=== PATIENT | female | born 1950 | race Caucasian/White ===

== ENCOUNTER → 2017-12-04 08:50 | Outpatient (CLI) | payer OTHER, SELFPAY ==
--- NOTE | 2017-12-04 08:58 | CDU_ITS ---
Reason For Study: BRUIT Rt. Velocities/BP Lt. Velocities/BP Prox CCA 85/22 cm/sec. Prox CCA 127/35 cm/sec. Mid CCA 87/24 cm/sec. Mid CCA 89/30 cm/sec. Dist CCA 69/22 cm/sec. Dist CCA 85/31 cm/sec. Prox ICA 68/24 cm/sec. Prox ICA 96/31 cm/sec. Mid ICA 75/27 cm/sec. Mid ICA 95/36 cm/sec. Dist ICA 100/34 cm/sec. Dist ICA 113/43 cm/sec. Rt. ICA/CCA = 1.14. Lt. ICA/CCA = 1.27. Prox ECA 90/14 cm/sec. Prox ECA 68/16 cm/sec. Rt. Vert. 50/19 cm/sec. Lt. Vert. 52/17 cm/sec. Right Extracranial There is homogeneous, smooth atherosclerotic plaque noted in the right common carotid artery. There is heterogeneous, irregular atherosclerotic plaque noted in the right internal carotid artery. There is heterogeneous, irregular atherosclerotic plaque noted in the right external carotid artery. Antegrade flow is noted in the right vertebral artery. There is heterogeneous, irregular atherosclerotic plaque noted in the right bulb. Left Extracranial There is homogeneous, smooth atherosclerotic plaque noted in the left common carotid artery. There is heterogeneous, smooth atherosclerotic plaque noted in the left internal carotid artery. There is heterogeneous, irregular atherosclerotic plaque noted in the left external carotid artery. Antegrade flow is noted in the left vertebral artery. There is heterogeneous, irregular atherosclerotic plaque noted in the left bulb. Procedure Carotid Duplex 70321. Exam performed in department. Interpretation Summary Mild (<50%) stenosis right extracranial internal carotid. Mild (<50%) stenosis left extracranial internal carotid. Flow within the vertebral arteries is antegrade bilaterally. Ordering Physician: Miguel Ángel Miranda Referring Physician: MIGUEL ÁNGEL MIRANDA Performed By: SureshLeilani arzola RDCS, RVT
--- NOTE | 2017-12-04 10:05 | RAD_ITS ---
Procedure: Dedicated esophagram, fluoroscopically guided. INDICATIONS: Heart spasms in September of this year. Now questioning esophageal spasm. TECHNIQUE: Fluoroscopic guided air-contrast esophagram with 12 mm barium pill swallow. Dedicated frontal and lateral evaluation of the pharynx/larynx. FINDINGS: The patient easily and readily swallowed effervescent crystals, a 12 mm barium pill and various density barium contrast. Multiple digital spot images were obtained during the course of the real-time exam. Esophageal motility is normal. There is no esophageal stricture, web or diverticulum. There is no hiatal hernia. No free reflux was observed during the course of the real-time exam. The esophageal mucosal pattern appears unremarkable. The swallow 12 mm barium pill easily and rapidly transited through the esophagus into the stomach. Dedicated frontal and lateral cine evaluation of the pharynx larynx demonstrate symmetric flow of the contrast bolus. Mucosal pattern appears unremarkable. There is no intrinsic or extrinsic mass or mass effect. RAD/Esophagus Only IMPRESSION: Unremarkable exam. Fluoroscopy time less than 1 minute. Incidental note of spondylosis and single level grade 1 degenerative listhesis throughout the cervical spine. Electronically Signed: Jaspreet Black MD at 10:55 EDT , Service support ,
== END ==
PROVIDERS: Family Provider Internal Medicine; PCP Internal Medicine; Visit Provider Internal Medicine
DX: R13.10 Dysphagia, unspecified (principal); R09.89 Other specified symptoms and signs involving the circulatory and respiratory systems
CPT/HCPCS: 74220; 93880

== ENCOUNTER → 2018-01-24 10:39 | Outpatient (CLI) | payer OTHER, SELFPAY ==
--- NOTE | 2018-01-24 10:43 | RAD_ITS ---
STUDY: X-RAY - LEFT KNEE REASON FOR EXAM: Female, 67 years old. Pain TECHNIQUE: 4 view(s) of the knee. COMPARISON: None. FINDINGS: Normal visualized distal femur. Normal visualized proximal tibia and fibula. Normal proximal tibiofibular articulation. There is no demonstrated fracture. There is severe degenerative arthrosis of the medial femorotibial compartment with severe joint space narrowing. There is mild degenerative arthrosis of the lateral femorotibial compartment. There is severe degenerative arthrosis of the patellofemoral articulation. There is no demonstrated joint effusion. The soft tissue structures are unremarkable. RAD/Knee 4 or More Views IMPRESSION: No acute abnormality. Severe degenerative changes, especially medially. Electronically Signed: Bert Leos MD at 14:40 EDT , Service support ,
--- NOTE | 2018-01-24 10:43 | RAD_ITS ---
STUDY: X-RAY - RIGHT KNEE REASON FOR EXAM: Female, 67 years old. Pain. TECHNIQUE: 4 view(s) of the knee. COMPARISON: None. FINDINGS: Normal visualized distal femur. Normal visualized proximal tibia and fibula. Normal proximal tibiofibular articulation. There is no demonstrated fracture. There is moderate degenerative arthrosis of the medial femorotibial compartment with moderate joint space narrowing. Normal lateral femorotibial compartment. There is mild degenerative arthrosis of the patellofemoral articulation. There is no demonstrated joint effusion. The soft tissue structures are unremarkable. RAD/Knee 4 or More Views IMPRESSION: No acute abnormality. Mild to moderate multicompartment degenerative changes. Electronically Signed: Bert Leos MD at 14:41 EDT , Service support ,
== END ==
PROVIDERS: Family Provider Internal Medicine; PCP Internal Medicine; Visit Provider Internal Medicine
DX: M17.0 Bilateral primary osteoarthritis of knee (principal)
CPT/HCPCS: 73564

== ENCOUNTER → 2018-03-05 11:03 | Outpatient (CLI) | payer OTHER, SELFPAY ==
--- NOTE | 2018-03-05 11:05 | VDLE_ITS ---
Reason For Study: Swelling RLE RIGHT LEFT GSV is normal. CFV is compressible, spontaneous, phasic, CFV is compressible, spontaneous, phasic, competent, and demonstrates normal competent and demonstrates normal augmentation. augmentation. FV is compressible, spontaneous, phasic, competent and demonstrates normal augmentation. POP V is compressible, spontaneous, phasic, competent and demonstrates normal augmentation. T/P Trunk is compressible. PTV is compressible. RT PerV is compressible. Hypoechoic, non vascular structure noted Rt Pop Fossa measuring 2.18cm x 4.21cm. Procedure Exam performed in department. A preliminary report was called and/or faxed to Dr. Schmidt. Interpretation Summary Deep veins of the right lower extremity are patent and compressible segmentally. There is no evidence of right lower extremity deep vein thrombosis. Valvular competence appears intact within the proximal deep venous system on the right . The right greater saphenous vein appears patent and compressible segmentally. A non-vascular, hypoechoic structure is noted in the right popliteal space, measuring 2.18 cm x 4.21 cm. This probably represents a popliteal cyst. Clinical correlation is advised. Ordering Physician: Becky Schmidt Referring Physician: Becky Schmidt Performed By: Lety Webber, [facility]I, RVT
== END ==
PROVIDERS: Family Provider Internal Medicine; PCP Internal Medicine; Visit Provider Internal Medicine
DX: M79.89 Other specified soft tissue disorders (principal)
CPT/HCPCS: 93971

== ENCOUNTER → 2018-04-23 09:36 | Outpatient (CLI) | payer OTHER, SELFPAY ==
--- NOTE | 2018-04-23 09:43 | BI_ITS ---
MAMMOGRAPHY - BILATERAL SCREENING REASON FOR EXAM: Female, 67 years old. Routine annual screening examination. PERTINENT HISTORY: Non-contributory. TECHNIQUE: Digital bilateral breast wilber (3D mammographic acquisition) in the CC and MLO projections. 2-D mediolateral oblique (MLO) and craniocaudad (CC) views of both breasts were obtained. CAD: Full Field Digital Mammography with Computer Added Detection was performed. COMPARISON: Comparison is made with prior outside examination dated April 02, 2017. FINDINGS: Breast Composition: The breasts are heterogeneously dense, which may obscure small masses. There are no dominant masses or suspicious calcifications. No other significant abnormalities are identified. There has been no significant change since the prior study. BI/SCREENING MAMM (CAD), BILAT IMPRESSION: Stable bilateral screening mammogram. Yearly follow-up mammogram recommended. (A) ASSESSMENT CATEGORY: BIRADS Category 1: Negative. A letter regarding these results will be sent to the patient by the facility within 30 days. Approximately 10% of breast cancers are not detected by mammography. A normal mammogram should not delay biopsy of a clinically suspicious abnormality. [id number] Electronically Signed: Ace Cunha MD at 13:12 EDT Tel [phone], Service support ,
== END ==
PROVIDERS: Family Provider Internal Medicine; PCP Internal Medicine; Visit Provider Internal Medicine
DX: Z12.31 Encounter for screening mammogram for malignant neoplasm of breast (principal)
CPT/HCPCS: 77063; 77067

== ENCOUNTER → 2018-11-13 11:58 | Outpatient (CLI) | payer OTHER, SELFPAY ==
--- NOTE | 2018-11-13 12:03 | CDU_ITS ---
Reason For Study: Carotid stenosis Rt. Velocities/BP Lt. Velocities/BP Prox CCA 89.1/20.0 cm/sec. Prox CCA 102.1/25.2 cm/sec. Mid CCA 108.6/21.3 cm/sec. Mid CCA 96.9/23.9 cm/sec. Dist CCA 100.8/23.9 cm/sec. Dist CCA 79.9/23.9 cm/sec. Prox ICA 70.8/17.3 cm/sec. Prox ICA 79.9/26.5 cm/sec. Mid ICA 65.6/14.7 cm/sec. Mid ICA 64.7/21.4 cm/sec. Dist ICA 65.6/14.7 cm/sec. Dist ICA 58.0/19.2 cm/sec. Rt. ICA/CCA = .7. Lt. ICA/CCA = .8. Prox ECA 116.5/10.8 cm/sec. Prox ECA 73.4/9.5 cm/sec. Rt. Vert. 53.9/17.3 cm/sec. Lt. Vert. 43.4/12.1 cm/sec. Right Extracranial There is intimal thickening but no significant atherosclerotic plaque noted in the right common carotid artery. There is heterogeneous, irregular atherosclerotic plaque noted in the right internal carotid artery. There is heterogeneous, irregular atherosclerotic plaque noted in the right external carotid artery. Antegrade flow is noted in the right vertebral artery. Left Extracranial There is intimal thickening but no significant atherosclerotic plaque noted in the left common carotid artery. There is heterogeneous, irregular atherosclerotic plaque noted in the left internal carotid artery. There is heterogeneous, irregular atherosclerotic plaque noted in the left external carotid artery. Antegrade flow is noted in the left vertebral artery. Procedure Carotid Duplex [id number]. Exam performed in department. Interpretation Summary Mild (<50%) stenosis right extracranial internal carotid. Mild (<50%) stenosis left extracranial internal carotid. Flow within the vertebral arteries is antegrade bilaterally. Ordering Physician: Becky Schmidt Referring Physician: Becky Schmidt Performed By: Lavonne Emery RVT
--- NOTE | 2018-11-13 12:42 | BD_ITS ---
STUDY: DUAL ENERGY X-RAY ABSORPTIOMETRY / DXA REASON FOR EXAM: Female, 68 years old. Early menopause. TECHNIQUE: Bone Mineral Density (BMD) measurements of lumbar spine and bilateral hips were obtained. COMPARISON: None. FINDINGS: Lumbar Spine (L1-L4): g/cm2 (1.128) / T-score (-0.4) / Z-score (1.3) Findings are suggestive of normal bone density with a low fracture risk. Left Femur Total: g/cm2 (0.682) / T-score (-2.6) / Z-score (-1.3) Left Femoral Neck: g/cm2 (0.690) / T-score (-2.5) / Z-score (-1.0) Right Femur Total: g/cm2 (0.803) / T-score (-1.6) / Z-score (-0.4) Right Femoral Neck: g/cm2 (0.747) / T-score (-2.1) / Z-score (-0.6) BD/Dexa Bone Density Study IMPRESSION: The patient is considered osteoporotic as outlined below according to World Isidro Organization (WHO) criteria with a high fracture risk. Reference Information: The T-score is the number of standard deviations above or below the standard which is normal for young adults at their peak bone mineral density. The World Health Organization (WHO) interprets the T-scores as follows: Above -1 Normal bone density Between -1 and -2.5 Osteopenia Equal to / or below -2.5 Osteoporosis As a practical clinical guideline, osteopenia may be graded as follows: Mild -1 through -1.5 Moderate -1.6 through -2.0 Severe -2.1 through -2.4 The Z-score is the number of standard deviations above or below age-matched controls. A Z-score of less than -1.5 would be considered abnormal. References: 1. NIH Osteoporosis and Related Bone Diseases http://www.osteo.org 2. International Society for Clinical Densitometry http://www.iscd.org 3. National Osteoporosis Foundation http://www.nof.org Electronically Signed: Ace Cunha, at 14:39 EDT , Service support ,
== END ==
PROVIDERS: Family Provider Internal Medicine; PCP Internal Medicine; Referring Provider Internal Medicine; Visit Provider Internal Medicine
DX: I65.23 Occlusion and stenosis of bilateral carotid arteries (principal); Z78.0 Asymptomatic menopausal state
CPT/HCPCS: 77080; 93880

== ENCOUNTER → 2019-04-06 | Outpatient (CLI) | payer OTHER, SELFPAY ==
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
== END | disposition home or self-care (01) ==
PROVIDERS: Family Provider Internal Medicine; PCP Internal Medicine; Referring Provider Internal Medicine; Visit Provider Internal Medicine
DX: M25.561 Pain in right knee (principal)
CPT/HCPCS: 73564

== ENCOUNTER → 2019-05-05 10:02 | Outpatient (CLI) | payer OTHER, SELFPAY ==
--- NOTE | 2019-05-05 10:06 | BI_ITS ---
MAMMOGRAPHY - BILATERAL SCREENING REASON FOR EXAM: Female, 68 years old. Routine annual screening examination. PERTINENT HISTORY: Non-contributory. TECHNIQUE: Digital bilateral breast dedeee (3D mammographic acquisition) in the CC and MLO projections. 2-D mediolateral oblique (MLO) and craniocaudad (CC) views of both breasts were obtained. CAD: Full Field Digital Mammography with Computer Added Detection was performed. COMPARISON: Comparison is made with prior study dated April 23, 2018. FINDINGS: Breast Composition: The breasts are heterogeneously dense, which may obscure small masses. There are no dominant masses or suspicious calcifications. No other significant abnormalities are identified. There has been no significant change since the prior study. BI/SCREEN MAMM (CAD) W/DEEDEE BILAT IMPRESSION: Stable bilateral screening mammogram. Yearly follow-up mammogram recommended. (A) ASSESSMENT CATEGORY: BIRADS Category 1: Negative. A letter regarding these results will be sent to the patient by the facility within 30 days. Approximately 10% of breast cancers are not detected by mammography. A normal mammogram should not delay biopsy of a clinically suspicious abnormality. [id number] Electronically Signed: Ace Cunha, at 13:15 EDT , Service support ,
== END ==
PROVIDERS: Family Provider Internal Medicine; PCP Internal Medicine; Referring Provider Internal Medicine; Visit Provider Internal Medicine
DX: Z12.31 Encounter for screening mammogram for malignant neoplasm of breast (principal)
CPT/HCPCS: 77063; 77067

== ENCOUNTER → 2019-05-12 12:12 | Outpatient (CLI) | payer OTHER, SELFPAY ==
--- NOTE | 2019-05-12 12:15 | RAD_ITS ---
STUDY: X-RAY - BILATERAL RIBS WITH CHEST REASON FOR EXAM: Female, 68 years old. Anterior displaced ribs from coughing, continued pressure sensation after adjustment. TECHNIQUE - RIBS: 4 view(s) of the ribs. TECHNIQUE - CHEST: Single frontal view of the chest. COMPARISON: None. FINDINGS - RIBS : Normal visualized ribs without a demonstrated fracture. FINDINGS - CHEST: The lungs are clear and expanded. There is no demonstrated pleural abnormality. Normal size heart. Normal mediastinum and trinity. Normal visualized pulmonary arteries. Normal visualized aortic arch and descending thoracic aorta. There are degenerative changes of the lower thoracic spine. Normal visualized ribs, clavicles, and shoulders. Surgical clips consistent with prior cholecystectomy project in the right upper quadrant of the abdomen. RAD/Ribs Case Min 4V w/PA Chest IMPRESSION: RIBS: Normal x-ray examination of the bilateral ribs. CHEST: No acute cardiopulmonary disease. Electronically Signed: Macario Ennis MD at 19:19 EDT , Service support ,
== END ==
PROVIDERS: Family Provider Internal Medicine; PCP Internal Medicine; Referring Provider Internal Medicine; Visit Provider Internal Medicine
DX: R07.81 Pleurodynia (principal)
CPT/HCPCS: 71111

== ENCOUNTER → 2019-05-20 12:14 | Outpatient (CLI) | payer OTHER, SELFPAY ==
[2019-05-20 12:17] LABS: Bacteria 0 SEEN /hpf (None Seen); Mucous, Urine 0 SEEN /hpf (<or=2+); Red Blood Cells-Urine 0 SEEN /hpf (0-5); White Blood Cells 0 SEEN /hpf (0-5)
[2019-05-20 12:24] LABS: Absolute Lymphocyte Count 1.49 X10^3/uL (0.83-4.51); Absolute Neutrophil Count 5.8 X10^3/uL (2.0-7.7); Basophil# 0.04 X10^3/uL; Basophil% 0.5 % (0-1); Eosinophil# 0.29 X10^3/uL; Eosinophils% 3.5 % (0-5); Hematocrit 43.1 % (37-47); Hemoglobin 13.8 g/dL (12.0-15.0); Lymphocyte # 1.49 X10^3/ul (4.0); Mean Corpuscular Hgb 30.1 pg (27.0-32.0); Mean Corpuscular Volume 93.9 fL (81-99); Mean Platelet Vol. 11.3 fl (6.2-12.0); Monocyte# 0.63 X10^3/uL; Monocyte% 7.6 % (0-10); NRBC Flagged by Analyzer 0 % (0-5); Neutrophil # 5.82 X10^3/uL (2.7-7.7); Neutrophil % 70.2 % (47-70); Platelet Count 255 K/mm3 (150-450); RBC Distribution Width CV 13.6 % (11.6-14.6); RBC Distribution Width SD 46.5 fl (35.1-43.9); Red Blood Count 4.59 M/mm3 (4.2-5.4); White Blood Count 8.3 K/mm3 (4.4-11.0)
[2019-05-20 12:26] LABS: Color, Urine Yellow (Yellow); Glucose, Dipstick Normal (Normal); Ketone-Dipstick Negative (Negative); Leukocyte Esterase-Dipstick Negative /ul (Negative); Nitrite-Dipstick Negative (Negative); Occult Blood-Urine Negative /ul (Negative); Protein-Dipstick Negative (Negative); Urine Bilirubin Dipstick Negative (Negative); Urine Clarity Sl. Cloudy (Clear); Urine Urobilinogen Normal (Normal)
[2019-05-20 12:27] LABS: Erythrocyte Sedimentation Rate < 1 mm/hr (0-30)
[2019-05-20 12:34] LABS: D-Dimer Quantitative (DVT/PE) 0.49 FEU/ug/m (0.27-0.49)
[2019-05-20 12:35] LABS: Squamous Epithelial Cells - UA 0-5 SEEN /hpf (5-10)
[2019-05-20 12:56] LABS: Vitamin B12 616 pg/mL (211-911)
[2019-05-20 12:58] LABS: ALB/GLOB Ratio 1.7 RATIO (0.9-2.4); AST(SGOT) 28 U/L (15-37); Alanine Aminotransfer ALT/SGPT 32 U/L (13-56); Albumin, Serum 3.7 g/dL (3.2-5.0); Alkaline Phosphatase 60 U/L (45-117); Anion Gap 9 (5-15); BUN 14 mg/dL (7-18); BUN/Creat Ratio 20.3 RATIO (10-20); CRP < 2.90 mg/L (0.0-3.0); Calcium,Total 8.9 mg/dL (8.5-10.1); Chloride 108 mmol/L (98-107); Creatinine, Serum 0.69 mg/dL (0.55-1.02); EST Glomerular Filtration Rate 90 mL/min (>60); Est Glom Filt Rate - Afr Amer 109 mL/min (>60); Globulin 2.2 g/dL (2.2-4.2); Glucose 81 mg/dL (74-106); Potassium 4.2 mmol/L (3.5-5.1); Protein, Total 5.9 g/dL (6.4-8.2); Sodium Level 148 mmol/L (136-145); Thyroid Stim Hormone (TSH) 0.95 uIU/mL (0.358-3.74)
== END ==
PROVIDERS: Family Provider Internal Medicine; PCP Internal Medicine; Visit Provider Internal Medicine
DX: R07.89 Other chest pain (principal); R53.83 Other fatigue
CPT/HCPCS: 80053; 81001; 82607; 84443; 85025; 85379; 85652; 86140

== ENCOUNTER → 2019-07-01 11:48 | Outpatient (CLI) | payer OTHER, SELFPAY ==
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
== END ==
PROVIDERS: Family Provider Internal Medicine; PCP Internal Medicine; Referring Provider Internal Medicine; Visit Provider Internal Medicine
DX: M54.2 Cervicalgia (principal)
CPT/HCPCS: 72050

== ENCOUNTER 2019-07-02 12:32 | Emergency (ER) | payer OTHER, SELFPAY ==
[2019-07-02 12:33] VITALS: BP 150/85; PULSE 81; RESP 18; TEMP 36.6; O2SAT 98; BMI 24.0
--- NOTE | 2019-07-02 13:42 | MRI_ITS ---
STUDY: MRA OF THE HEAD WITHOUT CONTRAST REASON FOR EXAM: Female, 68 years old. Headache, vision loss TECHNIQUE: 3-D [id number] (TOF) imaging was performed with MIPs. The study was performed unenhanced. COMPARISON: None. FINDINGS: Normal bilateral petrous carotid arteries. Normal right cavernous carotid artery with a normal supraclinoid bifurcation. Normal left cavernous carotid artery with a normal supraclinoid bifurcation. There is hypoplastic development of the right A1 segment of the anterior cerebral arteries with an atretic but intact artery. Normal left A1 segments of the anterior cerebral artery. Normal intact anterior communicating artery (ACOM). Normal bilateral A2 segments of the anterior cerebral arteries. Normal right M1 and M2 segments of the middle cerebral arteries, with a normal M1 bifurcation. Normal left M1 and M2 segments of the middle cerebral arteries, with a normal M1 bifurcation. Normal right posterior communicating artery (PCOM). Normal left posterior communicating artery (PCOM). Normal bilateral vertebral arteries. Normal basilar artery with a normal basilar bifurcation. The visualized bilateral superior cerebellar (SCA) arteries are normal. Normal bilateral P1, P2 and visualized P3 segments of the posterior cerebral arteries. There is no demonstrated aneurysm of the unga of Read. There is no major vessel occlusion or hemodynamically significant stenosis. There is no demonstrated abnormality of the visualized brain. MRI/MRA Head ONLY without Contrast IMPRESSION: Normal MRA of the head Electronically Signed: Sahil Marshall MD at 16:06 EST Tel , Service support ,
--- NOTE | 2019-07-02 13:42 | MRI_ITS ---
We are attempting to reach an attending provider to discuss findings. An addendum with communication details will be sent when the communication is complete. STUDY: MRI BRAIN WITH AND WITHOUT CONTRAST REASON FOR EXAM: Female, 68 years old. Headache, vision loss, altered mental status, confusion TECHNIQUE: Standardized multiplanar fat and water weighted pulse sequences were obtained. IV Dotarem 13 was administered for the contrast portion of the examination. COMPARISON: None. FINDINGS: There is mild cerebral atrophy with widening of the extra-axial spaces and ventricular dilatation. There are a limited number of small white matter hyperintensities, distributed throughout the deep white matter tracts of the cerebral hemispheres, consistent with mild chronic white matter ischemic changes. There is no evidence for recent intracranial ischemia or other cause of cytotoxic edema on diffusion weighted imaging (DWI). Examination of the gradient echo images demonstrates some linear areas of hypointensity along the superior aspect of the falx cerebri which may represent calcification or subarachnoid hemorrhage. Furthermore, there is a punctate round hypointensity within the periventricular white matter of the posterior right parietal lobe which may represent hemorrhage possibly from amyloid angiopathy. Correlation with CT the head without contrast is recommended. Normal bilateral basal ganglia. Normal thalami. There is no extra-axial fluid accumulation. Normal flow voids within the major intracranial circulation suggesting patency by spin echo criteria. Normal venous enhancement. There is no enhancing intra-axial or extra-axial abnormality. Normal sella turcica, pituitary gland, infundibular stalk, optic chiasm and hypothalamus. Normal tectal plate and pineal gland. Normal midbrain, andrew and medulla. Normal cerebellum. Normal basal cisterns. Normal bilateral temporal bones. Normal bilateral internal auditory canals. No demonstrated orbital abnormality, within the constraints of a routine brain study. Normal visualized paranasal sinuses. Normal calvarium and skull base. Normal visualized soft tissue structures. Normal visualized upper cervical spine. MRI/Brain W/WO Contrast IMPRESSION: Crushable subarachnoid hemorrhage along the superior aspect of the falx as well as a possible punctate parenchymal hemorrhage in the periventricular right matter of the right parietal lobe. Correlation with CT the head without contrast is recommended. Electronically Signed: Sahil Marshall MD at 16:03 EST Tel , Service support ,
--- NOTE | 2019-07-02 13:42 | MRI_ITS ---
STUDY: MRA NECK WITH AND WITHOUT CONTRAST REASON FOR EXAM: Female, 68 years old. Headache, vision loss TECHNIQUE: 3-D [id number] (TOF) imaging was performed in an 1.5 T MRI scanner. IV Dotarem 13 was administered for the contrast enhanced images. COMPARISON: None. FINDINGS: RIGHT CAROTID ARTERIES: Normal right common carotid artery (CCA). Normal right common carotid bulb. Normal origin of the right internal carotid (ICA) artery without a hemodynamically significant stenosis. Normal visualized cervical portion of the right internal carotid artery. Normal origin of the right external carotid artery (ECA). LEFT CAROTID ARTERIES: Normal left common carotid artery (CCA). Normal left common carotid bulb. Normal origin of the left internal carotid (ICA) artery without a hemodynamically significant stenosis. Normal visualized cervical portion of the left internal carotid artery. Normal origin of the left external carotid artery (ECA). VERTEBRAL ARTERIES: Normal antegrade flow within the bilateral vertebral artery without a hemodynamically significant stenosis. MRI/MRA Neck WITH and W/O Contrast IMPRESSION: Normal bilateral cervical carotid and vertebral arteries. Electronically Signed: Sahil Marshall MD at 16:06 EST Tel , Service support ,
[2019-07-02 13:48] LABS: Hematocrit 41.5 % (37-47); Hemoglobin 13.2 g/dL (12.0-15.0); Mean Corp Hgb Conc 31.8 g/dL (32-36); Mean Corpuscular Hgb 29.1 pg (27.0-32.0); Mean Corpuscular Volume 91.6 fL (81-99); Mean Platelet Vol. 11.4 fl (6.2-12.0); Platelet Count 249 K/mm3 (150-450); RBC Distribution Width CV 13.4 % (11.6-14.6); RBC Distribution Width SD 44.9 fl (35.1-43.9); Red Blood Count 4.53 M/mm3 (4.2-5.4); White Blood Count 6.8 K/mm3 (4.4-11.0)
[2019-07-02 13:55] LABS: Anion Gap 5 (5-15); BUN 15 mg/dL (7-18); BUN/Creat Ratio 21.7 RATIO (10-20); Calcium,Total 9.1 mg/dL (8.5-10.1); Chloride 110 mmol/L (98-107); Creatinine, Serum 0.69 mg/dL (0.55-1.02); EST Glomerular Filtration Rate 90 mL/min (>60); Est Glom Filt Rate - Afr Amer 109 mL/min (>60); Estimated Creatinine Clearance 51.81 ml/min; Glucose 105 mg/dL (74-106); Potassium 3.8 mmol/L (3.5-5.1); Sodium Level 145 mmol/L (136-145)
[2019-07-02] MEDS: 0.9% Normal Saline 1,000 ML 999 ML IV (14:12)
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
--- NOTE | 2019-07-02 16:18 | CT_ITS ---
STUDY: CT BRAIN WITHOUT CONTRAST REASON FOR EXAM: Female, 68 years old. Headache, neck stiffness. RADIATION DOSAGE (If Supplied By Facility): CTDIvol = ( 44.99 ) mGy, DLP = ( 745.49 ) mGycm TECHNIQUE: Transaxial CT imaging of the brain was performed without administration of intravenous contrast material. Individualized dose optimization techniques were used for this CT. COMPARISON: MRI brain 07/02/2019. FINDINGS: Normal soft tissue structures. Normal calvarium. Normal size ventricles and extra-axial spaces for the patient's age. There are areas of decreased attenuation within the white matter tracts of the supratentorial brain, consistent with microvascular disease changes. There is no intracranial hemorrhage. There are no findings of an acute ischemic infarction. Normal visualized paranasal sinuses. CT/Brain/Head without Contrast IMPRESSION: 1. No acute findings. 2. Mild microvascular ischemic changes. Electronically Signed: Theodora Sethi MD at 17:36 EST Tel , Service support ,
--- NOTE | 2019-07-02 16:41 | ED.DEP ---
ED Disposition - Plan for ED Patient: Disposition: Home or Assisted Living Instructions: HEADACHE, Unspecified Referrals: Brayan,Becky, [Primary Care Provider] - As Needed Additional Instructions: Up with your eye doctor to have an evaluation for your double vision.
--- NOTE | 2019-07-02 17:46 | ED.RN ---
pt still has headache. states no improvement. dr duncan
[2019-07-02 18:06] VITALS: BP 160/82; PULSE 67; RESP 14
== END 2019-07-02 18:07 | disposition home or self-care (01) ==
PROVIDERS: Emergency Provider Emergency Medicine; Family Provider Internal Medicine; PCP Internal Medicine
DX: R51 Headache (principal); H53.2 Diplopia; Z87.820 Personal history of traumatic brain injury; I10 Essential (primary) hypertension; E78.00 Pure hypercholesterolemia, unspecified; Z79.899 Other long term (current) drug therapy
CPT/HCPCS: 70450; 70544; 70549; 70553; 80048; 85027; 96360; 96361; 99284; A9575; J7030; A4216

== ENCOUNTER 2019-08-17 10:30 | Outpatient (RCR) | payer OTHER, SELFPAY ==
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
--- NOTE | 2019-08-24 10:11 | HP.PT.NRP ---
HP - Discharge Summary (1) - Patient Information TOBIAS MCNALLY was seen in my office for initial evaluation on 08/14/19. The following Plan of Care was established for this patient: Initial Frequency: 1-2x /Week Initial Duration: 4-6 Weeks - Anticipated Interventions Patient/Client Instruction: Educate patient on: Condition For the Purpose of:: To increase tolerance to activity/condition/position For the Purpose of:: To increase tolerance to activity/condition/position This patient was last seen in our office 08/17/19. Pertinent comments regarding their Physical therapy will appear below: Pt seen two visits of positional treatments adn was to f/u a week later but cancelled stating that the BD exercises given to her were very helpful and she was going to see ENT for plugged ears. Wanted all visits cancelled. At this point I will be discontinuing this patient from physical therapy. I would be happy to see this patient again in the future if found appropriate by the physician. Thank you! Vernon Lui, DPT, OCS, CSCS
== END 2019-08-17 19:00 | disposition home or self-care (01) ==
LOC: PT 10:30
PROVIDERS: Family Provider Internal Medicine; PCP Internal Medicine; Referring Provider Psychiatry & Neurology Neurology; Visit Provider Psychiatry & Neurology Neurology
DX: H81.12 Benign paroxysmal vertigo, left ear (principal)
CPT/HCPCS: 97162; 97530

== ENCOUNTER → 2019-09-17 13:01 | Outpatient (CLI) | payer OTHER, SELFPAY ==
--- NOTE | 2019-09-17 14:43 | CT_ITS ---
STUDY: CT LEFT LEG REASON FOR EXAM: Female, 69 years old. PAIN, KNEE RECONSTRUCTIVE SURGE 1976, KNEE SCOPE IN 2009. RADIATION DOSAGE (If Supplied By Facility): CTDIvol = ( 31.24 ) mGy, DLP = ( 1804.85 ) mGycm. Individualized dose optimization techniques were used for this CT.? TECHNIQUE: 2.5 mm helical cuts were performed through the left lower extremity, first evaluating the left pelvis and proximal left femur second part of the study and involve the distal femur, proximal tibia and fibula and knee joint. There was also evaluation of the distal leg including the ankle. CHRISTINA protocol. COMPARISON: No recent studies FINDINGS: Osteopenia. Mild left hip osteoarthritis without dislocation or subluxation. Intact distal femur with mild cortical thinning. Severe medial compartment arthrosis, mild lateral compartment arthrosis with degenerative spurs. Moderate/severe patellofemoral arthrosis with spurring. No acute fracture. No dislocation. No osseous destruction. No demonstrated soft tissue abnormality in the pelvic and hip region . No soft tissue swelling suspicious adenopathy. Moderate posterior patellar joint effusion with subtle induration of the subcutaneous fat and skin thickening suggesting inflammation. Ankle joint effusion with diffuse induration of the subcutaneous fat suggesting inflammation. Skin thickening. CT/Extremity Lower without Contra IMPRESSION: Severe left knee osteoarthritis predominating at the medial and patellofemoral compartments Mild left hip and ankle osteoporosis Joint effusions and soft tissue swelling Electronically Signed: Vernon Stanton DO at 8:22 EST Tel , Service support ,
== END ==
PROVIDERS: Family Provider Internal Medicine; PCP Internal Medicine; Referring Provider Orthopaedic Surgery; Visit Provider Orthopaedic Surgery
DX: M17.12 Unilateral primary osteoarthritis, left knee (principal); M21.162 Varus deformity, not elsewhere classified, left knee
CPT/HCPCS: 73700

== ENCOUNTER 2019-10-05 10:30 | Observation (INO) | payer OTHER, MEDICARE, SELFPAY ==
[2019-09-17 13:26] VITALS: BP 139/76; PULSE 78; RESP 16; TEMP 37.1; O2SAT 95; BMI 23.3
--- NOTE | 2019-09-17 14:28 | SDCEKG_ITS ---
Test Reason : Blood Pressure : / mmHG Vent. Rate : 075 BPM Atrial Rate : 075 BPM P-R Int : 184 ms QRS Dur : 070 ms QT Int : 400 ms P-R-T Axes : 071 042 060 degrees QTc Int : 446 ms Normal sinus rhythm Possible Left atrial enlargement Borderline ECG Confirmed by CORY JUÁREZ, LAURA ([id number]), market editor TEE CANELA ([id number]) on 09/21/2019 10:49:18 AM Referred By: Sung Stinson Confirmed By:RODRIGUEZ RAY MD
[2019-09-17 14:54] LABS: Absolute Lymphocyte Count 1.74 X10^3/uL (0.83-4.51); Absolute Neutrophil Count 4.1 X10^3/uL (2.0-7.7); Basophil# 0.06 X10^3/uL; Basophil% 0.9 % (0-1); Eosinophil# 0.14 X10^3/uL; Eosinophils% 2.1 % (0-5); Hematocrit 43.8 % (37-47); Hemoglobin 13.8 g/dL (12.0-15.0); Lymphocyte # 1.74 X10^3/ul (4.0); Lymphocyte % 25.7 % (19-41); Mean Corp Hgb Conc 31.5 g/dL (32-36); Mean Corpuscular Hgb 28.8 pg (27.0-32.0); Mean Corpuscular Volume 91.3 fL (81-99); Mean Platelet Vol. 11.9 fl (6.2-12.0); Monocyte# 0.75 X10^3/uL; Monocyte% 11.1 % (0-10); NRBC Flagged by Analyzer 0 % (0-5); Neutrophil # 4.07 X10^3/uL (2.7-7.7); Neutrophil % 59.9 % (47-70); Platelet Count 197 K/mm3 (150-450); RBC Distribution Width CV 13.7 % (11.6-14.6); RBC Distribution Width SD 46.3 fl (35.1-43.9); White Blood Count 6.8 K/mm3 (4.4-11.0)
[2019-09-17 15:04] LABS: Partial Thromboplast Time 28.2 Seconds (24.1-36.2)
[2019-09-17 15:24] LABS: AST(SGOT) 31 U/L (15-37); Alanine Aminotransfer ALT/SGPT 41 U/L (13-56); Albumin, Serum 3.6 g/dL (3.2-5.0); Alkaline Phosphatase 62 U/L (45-117); Anion Gap 1 (5-15); BUN 16 mg/dL (7-18); BUN/Creat Ratio 20.1 RATIO (10-20); Bilirubin, Direct 0.12 mg/dL (0.00-0.30); Calcium,Total 9.1 mg/dL (8.5-10.1); Chloride 112 mmol/L (98-107); EST Glomerular Filtration Rate 77 mL/min (>60); Est Glom Filt Rate - Afr Amer 93 mL/min (>60); Estimated Creatinine Clearance 63.88 ml/min; Globulin 2.8 g/dL (2.2-4.2); Glucose 100 mg/dL (74-106); Potassium 4.4 mmol/L (3.5-5.1); Protein, Total 6.4 g/dL (6.4-8.2); Sodium Level 144 mmol/L (136-145)
[2019-10-05] VITALS (13 sets, daily range): BP systolic 127–180; BP diastolic 62–84; PULSE 65–77; RESP 14–18; TEMP 36.6–36.8; O2SAT 96–100; BMI 23.3
[2019-10-05] MEDS: Lactated Ringers 1,000 ML 75 ML IV ×2 (11:00→14:00)
[2019-10-05] MEDS: Acetaminophen 500 MG Tablet 1000 MG PO ×3 (11:04→20:56)
[2019-10-05] MEDS: Gabapentin 600 MG Tablet PO (11:05)
[2019-10-05] MEDS: Lactated Ringers 1,000 ML 999 ML IV (11:13)
[2019-10-05 11:19] LABS: Magnesium 2.2 mg/dL (1.6-2.6)
[2019-10-05] MEDS: Magnesium Sulfate 4gm/100mL 4 GM/100 ML IV.SOLN. IV (12:15)
--- NOTE | 2019-10-05 12:15 | KNEE_PTH ---
PATIENT: TOBIAS MCNALLY LOC: [facility] U#:[id number] AGE/SX: 69/F [place] [facility] [place]: Dr. Sung Stinson DO : 1950 BED: 1 DIS: 10/06/2019 SPEC #: [id number] RECD: 10/05/19 15:32 STATUS: SASHA REQ #: [id number] KLAUDIA: 10/05/19 12:[address]: Sung Stinson DEPT: SURGICAL PATHOLOGY RECD BY: Richard Osborn ENTERED: 10/06/19 09:24 SP TYPE: TOTAL KNEE OTHR DR: Dr. Becky Schmidt DO Tissues: Knee, NOS Procedures: Decalcification bone/plaque Surgery Specimen Level IV HEADER OPERATION: ERAS, total knee replacement, robotic arm assist PRE-OP DIAGNOSIS: Unilateral primary osteoarthritis left knee TISSUE SUBMITTED: Left knee bone MICROSCOPIC DIAGNOSIS Bone of left knee, total knee resection: Severe degenerative joint disease. AM:florence 10/09/19 MICROSCOPIC DESCRIPTION Slides are reviewed. GROSS DESCRIPTION Received is one container designated left knee bone. The specimen consists of multiple fragments of ruano-yellow bone measuring in aggregate 11 x 9 x 3 cm. No soft tissue is identified. A number of bony fragments contain articular surfaces consistent with tibial plateau and femoral condyle and displaying prominent osteophyte formation, eburnation, and bone erosion. Fur Nailer sections are submitted in one cassette after decalcification. / SJ:florence 10/06/19 TC:5 CPT: 37969, 60397
--- NOTE | 2019-10-05 14:04 | PCM.OPRPT ---
Report of Operation Date of Procedure: 10/05/19 Pre-Operative Diagnosis: OA left knee Post-Operative Diagnosis: same Surgery/Procedure Performed:: Left TKR -- robotically assisted customer strategy manager: Kev Perdomo Type of Anesthesia:: Spinal Anesthesiologist: Gadiel Davis Estimated Blood Loss (mL): minimal - Admit VTE Documentation VTE Present on Admission: No VTE Mechan Device Prophylaxis: SCD's, Thigh High NAIF Hose VTE Pharm Prophylaxis ordered?: Yes
--- NOTE | 2019-10-05 14:30 | RAD_ITS ---
STUDY: X-RAY - LEFT KNEE REASON FOR EXAM: Postop knee arthroplasty. TECHNIQUE: 2 view(s) of the knee. COMPARISON: Radiographs 01/24/[address] images 09/17/2019. FINDINGS: There is a left total knee arthroplasty without evidence of complication. There is postoperative gas in the soft tissues. There are overlying skin erich. RAD/Knee 1 or 2 Views IMPRESSION: Uncomplicated left total knee arthroplasty. Electronically Signed: Salomon Saucedo MD at 15:15 EST Tel , Service support ,
[2019-10-05] MEDS: Aspirin 81 MG TAB.CHEW PO (18:16)
--- NOTE | 2019-10-05 19:33 | CT_ITS ---
STUDY: CT BRAIN WITHOUT CONTRAST REASON FOR EXAM: Female, 69 years old. TREMORS/STUTTERING SPEECH/EMOTIONALLY LABILE SINCE KNEE SURGERY RADIATION DOSAGE (If Supplied By Facility): CTDIvol = ( 44.99 ) mGy, DLP = ( 745.49 ) mGycm TECHNIQUE: Transaxial CT imaging of the brain was performed without administration of intravenous contrast material. Individualized dose optimization techniques were used for this CT. COMPARISON: July 02, 2019 CT head FINDINGS: Normal soft tissue structures. Normal calvarium. There is mild cerebral atrophy with widening of the extra-axial spaces and ventricular dilatation. There are areas of decreased attenuation within the white matter tracts of the supratentorial brain, consistent with microvascular disease changes. There is a punctate focus of low attenuation near the caudate suggesting lacunar infarct. Normal brainstem. There is mild cerebellar atrophy. There is no intracranial hemorrhage. There are no findings of an acute ischemic infarction. Normal visualized paranasal sinuses. CT/Brain/Head without Contrast IMPRESSION: Mild atrophy. No evidence of acute hemorrhage infarct or edema. Electronically Signed: Larissa Guillen MD at 20:15 EST Tel , Service support ,
--- NOTE | 2019-10-05 19:34 | NURSING ---
out to nurses' station after 1st post op assessment and states that pt. is shaking and that he doesn't know what to do. This RN in and pt was soaked from urinary incontinence and this RN and LYNDSAY Mooney assisted pt with incontinence care. Warm blankets placed on pt in recliner and bed linens changed. Tremors stopped at that time. Since then, it was noted that pt tremors on and off and that her speech is delayed/ stuttering. Also, pt reports she is emotionally labile. Patient's out to nurses' station at shift change and states that pt's daughter is talking to Dr. Schmidt and Dr. Schmidt is concerned. Dr. Bell, anesthesiologist called and asked if these symptoms could have been created with spinal. Dr. Bell states no, but possibly something could have occurred during surgery. Dr. Stinson called and notified of situation and symptoms and state CT of head ordered. Dr. Schmidt called in to nurses' station and wanted to make sure that we were looking into this situation. Notified that Dr. Bell and Dr. Stinson are aware and orders are in place.
--- NOTE | 2019-10-05 19:56 | NURSING ---
pt on way to CT at this time
[2019-10-05] MEDS: LORazepam 0.5 MG Tablet PO (20:55)
[2019-10-05] MEDS: Atorvastatin Calcium 40 MG Tablet PO (20:55)
[2019-10-05] MEDS: Senna/Docusate Sodium 1 Tablet 2 TABLET PO (20:55)
[2019-10-05] MEDS: busPIRone 15 MG TABLET PO (20:56)
[2019-10-05] MEDS: 0.9% Saline Lock 10 ML Syringe IV (20:58)
[2019-10-05] MEDS: Losartan Potassium 25 MG Tablet PO (21:02)
[2019-10-06] MEDS: oxyCODONE 5 MG Tablet PO ×4 (01:29→14:16)
[2019-10-06 05:51] LABS: Hematocrit 31.4 % (37-47); Hemoglobin 11.6 g/dL (12.0-15.0); Mean Corp Hgb Conc 36.9 g/dL (32-36); Mean Corpuscular Volume 97.5 fL (81-99); Mean Platelet Vol. 11.1 fl (6.2-12.0); Platelet Count 181 K/mm3 (150-450); RBC Distribution Width CV 15.7 % (11.6-14.6); RBC Distribution Width SD 47.8 fl (35.1-43.9); Red Blood Count 3.22 M/mm3 (4.2-5.4); White Blood Count 6.4 K/mm3 (4.4-11.0)
[2019-10-06 05:52] VITALS: BP 126/62; PULSE 84; RESP 16; TEMP 37.3; O2SAT 96
[2019-10-06] MEDS: Acetaminophen 500 MG Tablet 1000 MG PO ×2 (06:07→12:52)
[2019-10-06 06:13] LABS: Anion Gap 6 (5-15); BUN 14 mg/dL (7-18); BUN/Creat Ratio 22.9 RATIO (10-20); Calcium,Total 7.8 mg/dL (8.5-10.1); Chloride 110 mmol/L (98-107); Creatinine, Serum 0.61 mg/dL (0.55-1.02); EST Glomerular Filtration Rate 104 mL/min (>60); Est Glom Filt Rate - Afr Amer 125 mL/min (>60); Estimated Creatinine Clearance 51.11 ml/min; Glucose 134 mg/dL (74-106); Sodium Level 139 mmol/L (136-145)
--- NOTE | 2019-10-06 07:54 | PCM.PN.ORT ---
Subjective: Pt. doing well. CT of brain negative for acute pathology. Tremors and difficulty with speech cleared up. - Physical Exam Vitals/I&O's: Vital Signs Temp Pulse Resp BP Pulse Ox 99.1 F 84 16 126/62 H 96 10/06/19 05:52 10/06/19 05:52 10/06/19 05:52 10/06/19 05:52 10/06/19 05:52 Oxygen Flow Rate (L/min) 6 Oxygen Delivery Method Room Air Weight: 146 lb 9.718 oz Body Mass Index (BMI) 23.3 Intake and Output for Last 24 Hours 10/04/19 10/05/19 10/06/19 23:59 23:59 23:59 Intake Total 5314.25 / 5314.25 553.75 / 553.75 Output Total 2400 / 2400 1150 / 1150 Balance 2914.25 / 2914.25 -596.25 / -596.25 General: Alert, Oriented x3, Cooperative, No apparent distress Extremities: No clubbing, No cyanosis, No edema, Capillary Refill Less than 3 Seconds, No Calf Tenderness Skin: Incision - stable Laboratory Results 10/05/19 10:53: Magnesium 2.2 10/06/19 05:18: WBC 6.4, RBC 3.22 L, Hgb 11.6 L, Hct 31.4 L, MCV 97.5, MCH 36.0 H, MCHC 36.9 H, RDW Std Deviation 47.8 H, RDW Coeff of [place] 15.7 H, Plt Count 181, MPV 11.1 10/06/19 05:18: Sodium 139, Potassium 4.0, Chloride 110 H, Carbon Dioxide 23.0, Anion Gap 6, BUN 14, Creatinine 0.61, Estim Creat Clear Calc 51.11, Est GFR (MDRD) Af Amer 125, Est GFR (MDRD) Non-Af 104, BUN/Creatinine Ratio 22.9 H, Glucose 134 H, Calcium 7.8 L Current Medications Acetaminophen (Tylenol) 1,000 mg PO Q8 [facility] Last Admin: 10/06/19 06:07 Dose: 1,000 mg Documented by: Aspirin (Aspirin, Baby) 81 mg PO BIDCM [facility] Last Admin: 10/05/19 18:16 Dose: 81 mg Documented by: Atorvastatin Calcium (Lipitor) 40 mg PO QHS [facility] Last Admin: 10/05/19 20:55 Dose: 40 mg Documented by: Budesonide (Budesonide Ec) 9 mg PO DAILY PRN PRN PRN Reason: COLITIS Buspirone HCl (Buspar) 15 mg PO BID [facility] Last Admin: 10/05/19 20:56 Dose: 15 mg Documented by: Buspirone HCl (Buspar) 30 mg PO LUNCH PRN PRN Reason: ANXIETY Cholecalciferol (Vitamin D (25mcg)) 1,000 unit PO DAILY [facility] Duloxetine HCl (Cymbalta) 30 mg PO DAILY [facility] Sodium Chloride () 250 mls @ 15 mls/hr IV .[id number] PRN PRN Reason: Saline Flush Sodium Chloride () 250 mls @ 15 mls/hr IV .[id number] PRN PRN Reason: Additional IVPB Infusion Lorazepam (Ativan) 0.5 mg PO DAILY PRN PRN PRN Reason: ANXIETY Last Admin: 10/05/19 20:55 Dose: 0.5 mg Documented by: Losartan Potassium (Cozaar) 25 mg PO DAILY [facility] Last Admin: 10/05/19 21:02 Dose: 25 mg Documented by: Multivitamins (Multivitamin) 1 tablet PO DAILY@0800 [facility] Nitroglycerin (Nitrostat) 0.4 mg SUBLINGUAL Q5M PRN PRN Reason: CARDIAC/CHEST PAIN Ondansetron HCl (Zofran) 4 mg IV Q8H PRN PRN PRN Reason: NAUSEA Oxycodone HCl (Oxyir) 5 - 10 mg PO Q4H PRN PRN PRN Reason: Pain Score 4-10/10 Last Admin: 10/06/19 01:29 Dose: 10 mg Documented by: Promethazine HCl (Phenergan) 12.5 mg IM Q6H PRN PRN; Protocol PRN Reason: NAUSEA/VOMITING Senna/Docusate Sodium (Senokot-S, Behtany-Colace) 2 tablet PO BID [facility] Last Admin: 10/05/19 20:55 Dose: 2 tablet Documented by: Sodium Chloride () 10 - 40 ml IV UD PRN PRN Reason: SALINE FLUSH Last Admin: 10/05/19 20:58 Dose: 10 ml Documented by: Verapamil HCl (Calan Sr) 240 mg PO DAILY [facility] Medical Necessity - Tobacco Use Smoking Status: Never smoker Tobacco Use: Non-smoker Assessment/Plan S/P left TKR Will do PT twice today and d/c home this PM if stable.
--- NOTE | 2019-10-06 08:08 | DCINST_ITS ---
Discharge Diet: No Restrictions Discharge Activity: May Not Drive, May Shower, Use Walker May shower in (days): 3 Ice area for (Minutes): 20 - each hour while awake. Weight Bearing Status: Weight bearing as tolerated Elevate: Operative Extremity Additional Activity Instructions:: Wear elastic stockings for 2 weeks after your surgery. Call your doctor if your incision/area has: Continuous Slow Oozing, Sudden Increased Bleeding, Increased Pain/ Swelling, Increased Redness, Foul Smelling Discharge Call your doctor if you observe: Fever of 101 or Higher, Coldness, Increased Pain - in extremity, Numbness or Tingling, Change in Color, Calf discomfort, Uncontrolled pain Change Dressing in (Days):: 0 - and daily as needed. Remove Dressing in (days):: 8 Cleanse incision/area with: Soap & Water Allergies/Adverse Reactions: Allergies gluten Allergy (Verified 09/17/19 13:10) Other Penicillins Allergy (Verified 07/02/19 12:37) Angioedema Sulfa (Sulfonamide Antibiotics) Allergy (Verified 07/02/19 12:37) Vomiting Tetanus Vaccines and Toxoid Allergy (Verified 07/02/19 12:37) Other SWELLING AT SITE Medications to take at Discharge Albuterol IH (ProAir) [Proair Hfa] 1 - 2 puff INHALATION Q4H PRN PRN 07/02/19 Atorvastatin Calcium 40 mg PO DAILY 07/02/19 Cholecalciferol (Vitamin D3) [Vitamin D3] 1,000 unit PO DAILY 07/02/19 Cyanocobalamin (Vitamin B-12) [Vitamin B-12] 100 mcg PO DAILY 07/02/19 Duloxetine HCl 30 mg PO DAILY 07/02/19 Lorazepam 0.5 mg PO DAILY PRN 07/02/19 Multivitamin [Daily Vitamin Formula] 1 ea PO DAILY 07/02/19 Nitroglycerin 0.4 mg SL PRN PRN 07/02/19 Uceris 9 mg PO DAILY PRN 07/02/19 Valsartan 80 mg PO DAILY 07/02/19 Verapamil HCl [Verapamil ER] 240 mg PO DAILY 07/02/19 busPIRone [Buspar] 15 mg PO BID 07/02/19 busPIRone [Buspar] 30 mg PO LUNCH PRN 07/02/19 Biotin 5 mg PO DAILY 09/17/19 Acetaminophen [Tylenol] 1,000 mg PO Q8 #90 tab 10/06/19 Aspirin [Aspirin, Baby] 81 mg PO BIDCM #60 tab.chew 10/06/19 Oxycodone [Oxyir] 5 - 10 mg PO Q4H PRN PRN 7 Days #84 tablet 10/06/19 The following prescriptions were given: Aspirin [Aspirin, Baby] 81 mg PO BIDCM #60 tab.chew Transmission Status: Pending to [facility] Oxycodone [Oxyir] 5 - 10 mg PO Q4H PRN PRN 7 Days #84 tablet PRN Reason: Pain Score 4-10/10 Transmission Status: Sent to [facility] Acetaminophen [Tylenol] 1,000 mg PO Q8 #90 tab Transmission Status: Pending to [facility] Primary Care Physician: Becky Schmidt DO [Primary Care Provider] - Test Results: Test results from this visit will be discussed in further detail at your follow- up appointment, if applicable. Please Follow Up With: Kev Perdomo PA-C When: as scheduled (see pink sheet)
[2019-10-06] MEDS: Senna/Docusate Sodium 1 Tablet 2 TABLET PO (08:29)
[2019-10-06] MEDS: Multivitamins,Therapeutic Tablet 1 TABLET PO (08:29)
[2019-10-06] MEDS: Verapamil SR 240 MG Tablet PO (08:29)
[2019-10-06] MEDS: busPIRone 15 MG TABLET PO (08:29)
[2019-10-06] MEDS: DULoxetine Hcl 30 MG Capsule PO (08:29)
[2019-10-06] MEDS: Losartan Potassium 25 MG Tablet PO (08:29)
[2019-10-06] MEDS: Aspirin 81 MG TAB.CHEW PO (08:29)
[2019-10-06 10:05] VITALS: BP 115/62; PULSE 73; RESP 16; TEMP 36.4; O2SAT 98
--- NOTE | 2019-10-06 10:30 | CASEMGMT ---
MARIIA WANG Face to Face with patient for initial transition planning/care coordination assessment. RN KATHLEEN introduced self and role at [facility]. Patient lying in bed, alert and oriented, family at bedside. Patient willing to participate in assessment and is able to answer all questions appropriately. Care providers, pharmacy, and demographics verified. Patient wishes to discharge home and has outpatient therapy setup at [facility]. Patient states she has no further needs or concerns at this time. CM to follow for discharge planning needs that may arise. PCP: Becky Schmidt Specialists: [facility], Neuro; Soila, ENT; Bryan, hand wood sander; Milad, ortho Preferred Pharmacy: [facility] retail Insurance: M[employer], [employer] Prescription Benefit: yes Living Will/HPOA: none LNOK: , daughter Living Arrangements: Patient lives with , daughter, and grandchildren in 4 story home with bed and bath on second floor. Patient independent at home prior to surgery. Transportation: , daughter DME/HHC: Patient has tub bench, raised toilet, cane, walker, and hip kit at home. Patient is scheduled for outpatient therapy on Saturday. Disposition Plan: Patient to discharge home with family support and follow-up plans in place. Cami WEST, RN, CM
[2019-10-06] MEDS: LORazepam 0.5 MG Tablet PO (12:18)
[2019-10-06 14:25] VITALS: BP 130/48; PULSE 79; RESP 16; TEMP 36.9; O2SAT 100
== END 2019-10-06 14:40 | disposition home or self-care (01) ==
LOC: ACINP 10:44 → MS3 10-06 09:45 → ACINP 10-06 09:46 → MS3 10-06 09:46
PROVIDERS: Anesthesiology; Admitting Provider Orthopaedic Surgery; Family Provider Internal Medicine; PCP Internal Medicine; Referring Provider Orthopaedic Surgery; Visit Provider Orthopaedic Surgery
PROC: 0SRD0JZ Replacement of Left Knee Joint with Synthetic Substitute, Open Approach (ICD-10-PCS; CPT 27447; principal; 2019-10-05 12:00)
DX: M17.12 Unilateral primary osteoarthritis, left knee (principal); M19.90 Unspecified osteoarthritis, unspecified site; I25.2 Old myocardial infarction; I10 Essential (primary) hypertension; E78.00 Pure hypercholesterolemia, unspecified; Z79.899 Other long term (current) drug therapy; J45.909 Unspecified asthma, uncomplicated; Z79.82 Long term (current) use of aspirin
CPT/HCPCS: 01400; 27447; 64447; S2900; 36415; 70450; 73560; 80048; 80076; 83735; 85025; 85027; 85610; 85730; 87081; 88305; 88311; 93005; 96361; 96365; 96366; 97110; 97116; 97162; 97166; 97535; 99218; 99251; 99406; C1713; C1776; J7120; A4216; G0378; G0379; G0463

== ENCOUNTER → 2020-03-02 14:06 | Outpatient (CLI) | payer OTHER, SELFPAY ==
[2019-10-05 16:00] VITALS: BMI 23.3
--- NOTE | 2020-03-02 14:10 | VDLE_ITS ---
Reason For Study: Pain RIGHT LEFT CFV is compressible, spontaneous, phasic, GSV is normal. competent and demonstrates normal CFV is compressible, spontaneous, phasic, augmentation. competent, and demonstrates normal Procedure augmentation. Exam performed in department. FV is compressible, spontaneous, phasic, A preliminary report was called and/or faxed competent and demonstrates normal to Milad. augmentation. POP V is compressible, spontaneous, phasic, competent and demonstrates normal augmentation. T/P Trunk is compressible. PTV is compressible. LT PerV is compressible. Nonvascualrized structure noted in the left popliteal space measureing approximently 1.60 x 3.66 x 2.72 cm. Interpretation Summary Deep veins of the left lower extremity are patent and compressible segmentally. There is no evidence of left lower extremity deep vein thrombosis. Valvular competence appears intact within the proximal deep venous system on the left . The left great saphenous vein appears patent and compressible segmentally. A non-vascular, hypoechoic structure is noted in the left popliteal space, measuring 1.60 cm x 3.66 cm x 2.72 cm. This probably represents a popliteal cyst. Clinical correlation. Ordering Physician: Sung Stinson Performed By: Cami Reardon RVT
== END ==
PROVIDERS: PCP Internal Medicine; Referring Provider Orthopaedic Surgery; Visit Provider Orthopaedic Surgery
DX: M79.605 Pain in left leg (principal)
CPT/HCPCS: 93971

== ENCOUNTER → 2020-04-06 15:28 | Outpatient (CLI) | payer OTHER, SELFPAY ==
[2019-10-05 16:00] VITALS: BMI 23.3
--- NOTE | 2020-04-06 15:34 | CT_ITS ---
STUDY: CT ABDOMEN AND PELVIS WITHOUT CONTRAST REASON FOR EXAM: Female, 69 years old. VISIBLE HEMATURIA, B/L FLANK PAIN SINCE 8:45 AM RADIATION DOSAGE (If Supplied By Facility): CTDIvol = ( 6.44 ) mGy, DLP = ( 309.07 ) mGycm TECHNIQUE: Transaxial images were obtained from the dome of the diaphragm to the symphysis pubis without oral contrast, and without intravenous contrast. Sagittal and coronal images were reconstructed. Individualized dose optimization techniques were used for this CT. COMPARISON: None. FINDINGS: The visualized lung bases are unremarkable. The visualized portions of the heart are within normal limits. Normal liver. There are surgical clips in the gallbladder fossa consistent with a prior cholecystectomy. Normal spleen. Normal pancreas. Normal bilateral adrenal glands. Normal right kidney. A punctate calcification is seen in the upper pole calyx of the left kidney. Mild degree of the left hydronephrosis. Normal visualized stomach. Normal small intestine. Normal colon. The appendix is visualized and appears normal. There is diffuse atherosclerotic calcification of the abdominal aorta, without a demonstrated aneurysm. Normal inferior vena cava. Normal retroperitoneum. Normal urinary bladder. Normal abdominal wall. Minimal anterior listhesis of L4 on L5. CT/Abdomen/Pelvis without Cont IMPRESSION: Punctate calcification in the upper pole calyx of the left kidney. Electronically Signed: Ace Cunha, at 15:51 EDT , Service support ,
== END ==
PROVIDERS: PCP Internal Medicine; Referring Provider Internal Medicine; Visit Provider Internal Medicine
DX: R31.9 Hematuria, unspecified (principal)
CPT/HCPCS: 74176

== ENCOUNTER → 2020-06-07 13:11 | Outpatient (CLI) | payer OTHER, SELFPAY ==
[2019-10-05 16:00] VITALS: BMI 23.3
--- NOTE | 2020-06-07 13:13 | BI_ITS ---
MAMMOGRAPHY - BILATERAL SCREENING REASON FOR EXAM: Female, 69 years old. Routine annual screening examination. PERTINENT HISTORY: Non-contributory. TECHNIQUE: Digital bilateral breast deedee (3D mammographic acquisition) in the CC and MLO projections. 2-D mediolateral oblique (MLO) and craniocaudad (CC) views of both breasts were obtained. CAD: Full Field Digital Mammography with Computer Added Detection was performed. COMPARISON: Comparison is made with prior study dated 05/05/2019 and 04/23/2018. FINDINGS: Breast Composition: The breasts are heterogeneously dense, which may obscure small masses. There are no dominant masses or suspicious calcifications. No other significant abnormalities are identified. There has been no significant change since the prior study. BI/SCREEN MAMM (CAD) W/DEEDEE BILAT IMPRESSION: Stable bilateral screening mammogram. Yearly follow-up mammogram recommended. (A) ASSESSMENT CATEGORY: BIRADS Category 1: Negative. A letter regarding these results will be sent to the patient by the facility within 30 days. Approximately 10% of breast cancers are not detected by mammography. A normal mammogram should not delay biopsy of a clinically suspicious abnormality. [id number] Electronically Signed: Ace Cunha, at 14:14 EDT , Service support ,
--- NOTE | 2020-06-07 13:13 | US_ITS ---
STUDY: RENAL ULTRASOUND - COMPLETE REASON FOR EXAM: Female, 69 years old. HYDRONEPHROSIS -- F/U 04/06/20 CT -- HX OF KIDNEY STONES TECHNIQUE: Ultrasound evaluation of the kidneys was performed with real-time and static singleton-scale imaging. COMPARISON: None. FINDINGS: RIGHT KIDNEY: Normal location of the right kidney, which is normal in size. The right kidney measures 10.0 x 4.8 x 4.7 cm. There is a normal cortex of the right kidney. The renal cortex measures 1.4 cm. There is a 1.4 cm cyst. There is a 5 mm nonobstructive calculus. There is no right hydronephrosis. DISTAL RIGHT URETER: There is non-visualization of the distal right ureter. There is a visualized right ureteral jet. LEFT KIDNEY: Normal location of the left kidney, which is normal in size. The left kidney measures 9.1 x 3.9 x 5.4 cm. There is a normal cortex of the left kidney. The renal cortex measures 1.7 cm. There is no left renal mass or cyst. There is a 6 mm stone. There is no left hydronephrosis. DISTAL LEFT URETER: There is non-visualization of the distal left ureter. There is a visualized left ureteral jet. BLADDER: The partially distended urinary bladder has a volume of 50.3 ml. There is a normal wall thickness of the distended urinary bladder. There is no demonstrated mass within the urinary bladder. There are no demonstrated bladder calculi. US/Kidney and Bladder IMPRESSION: Nonobstructive bilateral renal calculi. Right renal cyst. No hydronephrosis. Electronically Signed: Felipe Maldonado DO at 22:05 EDT Tel [phone], Service support ,
--- NOTE | 2020-06-07 13:55 | CDU_ITS ---
Reason For Study: carotid stenosis Rt. Velocities/BP Lt. Velocities/BP Prox CCA 63.0/16.0 cm/sec. Prox CCA 80.9/20.6 cm/sec. Mid CCA 64.3/16.0 cm/sec. Mid CCA 63.0/16.3 cm/sec. Dist CCA 60.4/16.0 cm/sec. Dist CCA 54.4/13.9 cm/sec. Prox ICA 51.3/12.1 cm/sec. Prox ICA 42.8/15.4 cm/sec. Mid ICA 39.5/13.4 cm/sec. Mid ICA 54.1/20.1 cm/sec. Dist ICA 72.1/14.7 cm/sec. Dist ICA 60.8/18.5 cm/sec. Rt. ICA/CCA = 1.1. Lt. ICA/CCA = 1.0. Prox ECA 68.2/4.3 cm/sec. Prox ECA 59.3/7.7 cm/sec. Rt. Vert. 39.5/14.2 cm/sec. Lt. Vert. 51.3/7.8 cm/sec. Right Extracranial There is intimal thickening but no significant atherosclerotic plaque noted in the right common carotid artery. There is heterogeneous, irregular atherosclerotic plaque noted in the right internal carotid artery. There is intimal thickening but no significant atherosclerotic plaque noted in the right external carotid artery. Antegrade flow is noted in the right vertebral artery. Left Extracranial There is intimal thickening but no significant atherosclerotic plaque noted in the left common carotid artery. There is heterogeneous, irregular atherosclerotic plaque noted in the left internal carotid artery. There is heterogeneous, irregular atherosclerotic plaque noted in the left external carotid artery. Antegrade flow is noted in the left vertebral artery. Procedure Carotid Duplex [id number]. This is a Carotid Duplex examination using B-mode, color flow and specral Doppler. The exam was diagnostic. Exam performed in department. Interpretation Summary Mild (<50%) stenosis right extracranial internal carotid. Mild (<50%) stenosis left extracranial internal carotid. Flow within the vertebral arteries is antegrade bilaterally. Ordering Physician: Becky Schmidt Performed By: Dayne Arreguin RVT and Student
== END ==
PROVIDERS: PCP Internal Medicine; Referring Provider Internal Medicine; Visit Provider Internal Medicine
DX: Z12.31 Encounter for screening mammogram for malignant neoplasm of breast (principal); N13.30 Unspecified hydronephrosis; I65.23 Occlusion and stenosis of bilateral carotid arteries
CPT/HCPCS: 76770; 77063; 77067; 93880

== ENCOUNTER 2021-10-19 14:59 | Outpatient (CLI) | payer OTHER, SELFPAY ==
--- NOTE | 2021-10-19 15:02 | BI_ITS ---
MAMMOGRAPHY - BILATERAL SCREENING REASON FOR EXAM: Female, 71 years old. Routine annual screening examination. PERTINENT HISTORY: Non-contributory. TECHNIQUE: Digital bilateral breast deedee (3D mammographic acquisition) in the CC and MLO projections. 2-D mediolateral oblique (MLO) and craniocaudad (CC) views of both breasts were obtained. CAD: Full Field Digital Mammography with Computer Added Detection was performed. COMPARISON: Comparison is made with prior study 06/07/2020 and 05/05/2019. FINDINGS: Breast Composition: The breasts are heterogeneously dense, which may obscure small masses. There are no dominant masses or suspicious calcifications. No other significant abnormalities are identified. There has been no significant change since the prior study. BI/SCRN MAMM (CAD)W/DEEDEE BILAT IMPRESSION: Stable bilateral screening mammogram. Yearly follow-up mammogram recommended. (A) ASSESSMENT CATEGORY: BIRADS Category 1: Negative. A letter regarding these results will be sent to the patient by the facility within 30 days. Approximately 10% of breast cancers are not detected by mammography. A normal mammogram should not delay biopsy of a clinically suspicious abnormality. [id number] Electronically Signed: Ace Cunha MD at 8:49 EST ,
--- NOTE | 2021-10-19 15:04 | BD_ITS ---
STUDY: DUAL ENERGY X-RAY ABSORPTIOMETRY / DXA REASON FOR EXAM: Female, 71 years old. Z780. The patient is postmenopausal. TECHNIQUE: Bone Mineral Density (BMD) measurements of lumbar spine and bilateral hips were obtained. COMPARISON: Comparison is made with prior examination dated 11/13/2018. FINDINGS: Lumbar Spine (L1-L4): g/cm2 (0.926) / T-score (-0.8) / Z-score (1.2) Findings are suggestive of normal bone density with a low fracture risk. Left Femur Total: g/cm2 (0.636) / T-score (-2.5) / Z-score (-1.0) Left Femoral Neck: g/cm2 (0.543) / T-score (-2.8) / Z-score (-1.0) Right Femur Total: g/cm2 (0.739) / T-score (-1.7) / Z-score (-0.2) Right Femoral Neck: g/cm2 (0.631) / T-score (-2.0) / Z-score (-0.2) The T-Scores on the most recent prior examination were: Lumbar Spine (L1-L4): There has been worsening of bone density since the previous examination. Left Femur Total: which represents an improvement of 1.7%. Right Femur Total: which represents a worsening of 0.6%. BD/Dexa Bone Density Study IMPRESSION: The patient is considered osteoporotic as outlined below according to World Isidro Organization (WHO) criteria with a high fracture risk. There has been worsening of bone density since the previous examination. Reference Information: The T-score is the number of standard deviations above or below the standard which is normal for young adults at their peak bone mineral density. The World Health Organization (WHO) interprets the T-scores as follows: Above -1 Normal bone density Between -1 and -2.5 Osteopenia Equal to / or below -2.5 Osteoporosis As a practical clinical guideline, osteopenia may be graded as follows: Mild -1 through -1.5 Moderate -1.6 through -2.0 Severe -2.1 through -2.4 The Z-score is the number of standard deviations above or below age-matched controls. A Z-score of less than -1.5 would be considered abnormal. References: 1. NIH Osteoporosis and Related Bone Diseases www osteo.org 2. International Society for Clinical Densitometry www iscd.org 3. National Osteoporosis Foundation www nof.org Electronically Signed: Ace Cunha MD at 14:25 EST ,
== END 2021-10-19 23:59 | disposition home or self-care (01) ==
LOC: OPBD 15:00
PROVIDERS: PCP Internal Medicine; Visit Provider Internal Medicine
DX: Z12.31 Encounter for screening mammogram for malignant neoplasm of breast (principal); Z78.0 Asymptomatic menopausal state
CPT/HCPCS: 77063; 77067; 77080

== ENCOUNTER → 2022-10-29 | Outpatient (CLI) | payer OTHER, SELFPAY ==
--- NOTE | 2022-10-29 12:13 | BI_ITS ---
MAMMOGRAPHY - BILATERAL SCREENING REASON FOR EXAM: Female, 72 years old. Routine annual screening examination. PERTINENT HISTORY: Non-contributory. TECHNIQUE: Digital bilateral breast deedee (3D mammographic acquisition) in the CC and MLO projections. 2-D mediolateral oblique (MLO) and craniocaudad (CC) views of both breasts were obtained. CAD: Full Field Digital Mammography with Computer Added Detection was performed. COMPARISON: Comparison is made with prior study of October 19, 2021 and June 07, 2020. FINDINGS: Breast Composition: The breasts are heterogeneously dense, which may obscure small masses. There are no dominant masses or suspicious calcifications. No other significant abnormalities are identified. There has been no significant change since the prior study. BI/SCRN MAMM (CAD)W/DEEDEE BILAT IMPRESSION: Stable bilateral screening mammogram. Yearly follow-up mammogram recommended. (A) ASSESSMENT CATEGORY: BIRADS Category 1: Negative. A letter regarding these results will be sent to the patient by the facility within 30 days. Approximately 10% of breast cancers are not detected by mammography. A normal mammogram should not delay biopsy of a clinically suspicious abnormality. [id number] Electronically Signed: Ace Cunha MD at 13:15 EDT ,
== END | disposition home or self-care (01) ==
LOC: OPBI 12:11
PROVIDERS: PCP Internal Medicine; Visit Provider Internal Medicine
DX: Z12.31 Encounter for screening mammogram for malignant neoplasm of breast (principal)
CPT/HCPCS: 77063; 77067

== ENCOUNTER → 2023-02-08 | Outpatient (CLI) | payer OTHER, SELFPAY ==
--- NOTE | 2023-02-08 14:06 | ECHOD_ITS ---
Reason For Study: Atrial Septal Aneurysm Procedure This was a 2D Doppler, Color Flow transthoracic echocardiogram. Exam performed in department. Left Ventricle Normal LV size. Left ventricular systolic function is normal. The estimated ejection fraction is 60 %. Stage 1 diastolic dysfunction. No regional wall motion abnormalities noted. Right Ventricle Normal RV size. Normal systolic function. Atria Normal left atrium. Normal right atrium. Bubble contrast study negative for right to left interatrial shunt. Mitral Valve Normal mitral valve. Tricuspid Valve Normal tricuspid valve. Aortic Valve Normal aortic valve. Mild (1+) eccentric aortic valve insufficiency. Pulmonic Valve Normal pulmonic valve. Great Vessels Normal aortic root. Pericardium/Pleural No pericardial effusion. Medication 22 gauge I.V. with prn adaptor inserted into right arm. Performed a rapid injection of agitated mix of 9 cc saline and 1cc air to assess for atrial septal defect. MMode/2D Measurements & Calculations LVIDd: 5.0 cm IVSd: 1.1 cm Ao root diam: 3.2 cm LVIDs: 3.3 cm LVPWd: 0.93 cm LA dimension: 3.8 cm RVDd: 3.4 cm FS: 33.8 % LAV(MOD-bp): 61.3 ml LA A4 area: 18.8 cm2 RA A4 area: 15.4 cm2 LAV(MOD-bp) Indexed: 36.7 ml/m2 LAV(MOD-sp2): 66.7 ml LAV(MOD-sp4): 55.6 ml Time Measurements MV dec time: 0.21 sec Doppler Measurements & Calculations MV E max everardo: 110.4 cm/sec Lat Peak E' Everardo: 9.6 cm/sec Med Peak E' Everardo: 7.8 cm/sec MV A max everardo: 118.1 cm/sec E/E' lat: 11.5 E/E' med: 14.2 MV E/A: 0.93 MV V2 max: 132.6 cm/sec MV P1/2t max everardo: 107.1 cm/sec Ao V2 max: 169.7 cm/sec MV max P.0 mmHg MV P1/2t: 68.0 msec Ao max P.5 mmHg MV V2 mean: 77.8 cm/sec MV dec slope: 461.7 cm/sec2 Ao V2 mean: 117.7 cm/sec MV mean P.8 mmHg Ao mean P.4 mmHg MV V2 VTI: 35.3 cm MVA(P1/2t): 3.2 cm2 Ao V2 VTI: 42.2 cm AV (velocity ratio): 0.74 AI max everardo: 489.7 cm/sec LV V1 max: 123.6 cm/sec PA V2 max: 121.5 cm/sec AI max P.9 mmHg LV V1 max P.1 mmHg PA V2 mean: 86.6 cm/sec AI dec slope: 321.0 cm/sec2 LV V1 mean P.4 mmHg AI P1/2t: 446.8 msec LV V1 mean: 86.7 cm/sec LV V1 VTI: 31.1 cm ECHO/Echo Complete Interpretation Summary Normal LV size. Left ventricular systolic function is normal. The estimated ejection fraction is 60 %. Stage 1 diastolic dysfunction. Bubble contrast study negative for right to left interatrial shunt. Ordering Physician: Becky Schmidt Referring Physician: Becky Schmidt Performed By: Gopi Kelsey RCS
== END | disposition home or self-care (01) ==
LOC: CVS 14:01
PROVIDERS: PCP Internal Medicine; Referring Provider Internal Medicine; Visit Provider Internal Medicine
DX: I25.3 Aneurysm of heart (principal)
CPT/HCPCS: 93306; A4216

== ENCOUNTER → 2023-04-08 | Outpatient (CLI) | payer OTHER, SELFPAY ==
[2023-04-08 09:33] LABS: Absolute Neutrophil Count 4.1 X10^3/uL (2.0-7.7); Basophil# 0.08 X10^3/uL; Basophil% 1.1 % (0-1); Eosinophil# 0.17 X10^3/uL; Eosinophils% 2.4 % (0-5); Hematocrit 31.7 % (37-47); Hemoglobin 8.7 g/dL (12.0-15.0); Mean Corp Hgb Conc 27.4 g/dL (32-36); Mean Corpuscular Hgb 19.9 pg (27.0-32.0); Mean Corpuscular Volume 72.5 fL (81-99); Mean Platelet Vol. 10.8 fl (6.2-12.0); Monocyte# 0.77 X10^3/uL; Monocyte% 10.8 % (0-10); NRBC Flagged by Analyzer 0 % (0-5); Neutrophil # 4.12 X10^3/uL (2.7-7.7); Neutrophil % 57.6 % (47-70); POSITIVE MORPHOLOGY YES; Platelet Count 310 K/mm3 (150-450); RBC Distribution Width CV 20.2 % (11.6-14.6); RBC Distribution Width SD 52.5 fl (35.1-43.9); Red Blood Count 4.37 M/mm3 (4.2-5.4); White Blood Count 7.2 K/mm3 (4.4-11.0)
[2023-04-08 09:34] LABS: Differential Indicated SCAN CRITERIA MET
[2023-04-08 09:51] LABS: Prothrombin Time (Protime)PT. 12.9 SECONDS (11.7-14.9)
[2023-04-08 09:52] LABS: Partial Thromboplast Time 26.7 Seconds (24.1-36.2)
[2023-04-08 10:01] LABS: Anion Gap 3 (5-15); BUN 20 mg/dL (7-18); BUN/Creat Ratio 34.8 RATIO (10-20); Calcium,Total 8.9 mg/dL (8.5-10.1); Chloride 110 mmol/L (98-107); Creatinine, Serum 0.57 mg/dL (0.55-1.02); EST Glomerular Filtration Rate 110 mL/min (>60); Est Glom Filt Rate - Afr Amer 134 mL/min (>60); Glucose 89 mg/dL (74-106); Potassium 3.6 mmol/L (3.5-5.1); Sodium Level 142 mmol/L (136-145)
[2023-04-08 10:03] LABS: AST(SGOT) 22 U/L (15-37); Alanine Aminotransfer ALT/SGPT 24 U/L (13-56); Albumin, Serum 3.6 g/dL (3.2-5.0); Alkaline Phosphatase 66 U/L (45-117); Bilirubin, Direct 0.12 mg/dL (0.00-0.30); Globulin 2.6 g/dL (2.2-4.2); Magnesium 2.4 mg/dL (1.6-2.6); Protein, Total 6.2 g/dL (6.4-8.2)
[2023-04-08 10:06] LABS: Anisocytosis 1+; Ovalocyte 1+
== END | disposition home or self-care (01) ==
LOC: PAT 05-09 16:11
PROVIDERS: Anesthesiology; PCP Internal Medicine; Referring Provider Orthopaedic Surgery; Visit Provider Orthopaedic Surgery
DX: Z01.818 Encounter for other preprocedural examination (principal); Z01.810 Encounter for preprocedural cardiovascular examination; Z01.812 Encounter for preprocedural laboratory examination
CPT/HCPCS: 36415; 80048; 80076; 83735; 85025; 85610; 85730; 87077; 87081; 93005

== ENCOUNTER → 2023-04-08 | Outpatient (CLI) | payer OTHER, SELFPAY ==
--- NOTE | 2023-04-08 08:25 | CT_ITS ---
CT RIGHT LOWER EXTREMITY WITH 3-D IMAGING CLINICAL INDICATION: OSTEOARTHRITIS TECHNIQUE: Axial CT images of the RIGHT lower extremity was performed without IV contrast material. Coronal and sagittal reformats were provided. RADIATION DOSAGE (If Supplied By Facility): CTDIvol = ( 17.03 ) mGy, DLP = ( 984.63 ) mGycm FINDINGS: Bones: Imaging of the right hip joint was obtained. There is good alignment. No significant joint space narrowing is seen. Imaging of the knee joint was obtained. There is a marked degree of joint space narrowing involving the medial compartment of knee joint with degenerative spur formation. Mild degree of joint space narrowing of the patellofemoral joint. Imaging of the ankle joint was obtained. No significant abnormality is seen. Soft Tissues: The deep soft tissue structures are unremarkable. The superficial soft tissues are unremarkable without evidence of edema, hematoma, or foreign body. CT/Extremity Lower without Contra IMPRESSION: Marked degree of joint space narrowing and osteoarthritis of the medial compartment of the knee joint with degenerative spur formation. Electronically Signed: Ace Cunha MD at 16:45 EDT ,
== END | disposition home or self-care (01) ==
LOC: CT 08:22
PROVIDERS: PCP Internal Medicine; Referring Provider Orthopaedic Surgery; Visit Provider Orthopaedic Surgery
DX: S83.241A Other tear of medial meniscus, current injury, right knee, initial encounter (principal); M17.11 Unilateral primary osteoarthritis, right knee
CPT/HCPCS: 36415; 73700; 80048; 80076; 83735; 85025; 85610; 85730; 87077; 87081; 93005

== ENCOUNTER → 2023-05-29 | Outpatient (CLI) | payer OTHER, SELFPAY ==
--- NOTE | 2023-05-29 09:59 | CDU_ITS ---
Reason For Study: CAROTID STENOSIS Rt. Velocities/BP Lt. Velocities/BP Prox CCA 72.4/22.3 cm/sec. Prox CCA 105.1/25.3 cm/sec. Mid CCA 69.5/20.4 cm/sec. Mid CCA 90.4/20.4 cm/sec. Dist CCA 63.9/16.6 cm/sec. Dist CCA 87.9/19.2 cm/sec. Prox ICA 64.6/17.9 cm/sec. Prox ICA 82.1/24.4 cm/sec. Mid ICA 97.7/29.0 cm/sec. Mid ICA 96.9/34.3 cm/sec. Dist ICA 96.5/25.3 cm/sec. Dist ICA 123.5/30.3 cm/sec. Rt. ICA/CCA = 97.7/69.5=1.4. Lt. ICA/CCA = 123.5/90.4=1.4. Prox ECA 106.0/13.9 cm/sec. Prox ECA 94.1/15.5 cm/sec. Rt. Vert. 54.8/15.5 cm/sec. Lt. Vert. 48.8/12.1 cm/sec. Right Extracranial There is homogeneous, smooth atherosclerotic plaque noted in the right common carotid artery. There is heterogeneous, irregular atherosclerotic plaque noted in the right internal carotid artery. There is intimal thickening but no significant atherosclerotic plaque noted in the right external carotid artery. Antegrade flow is noted in the right vertebral artery. Left Extracranial There is homogeneous, smooth atherosclerotic plaque noted in the left common carotid artery. There is heterogeneous, irregular atherosclerotic plaque noted in the left internal carotid artery. There is heterogeneous, smooth atherosclerotic plaque noted in the left external carotid artery. Antegrade flow is noted in the left vertebral artery. Procedure Carotid Duplex [id number]. This is a Carotid Duplex examination using B-mode, color flow and specral Doppler. Exam performed in department. VL/Carotid Duplex Ultrasound Interpretation Summary Mild (<50%) stenosis right extracranial internal carotid. Mild (<50%) stenosis left extracranial internal carotid. Patent and antegrade vertebrals bilaterally. Ordering Physician: Becky Schmidt Referring Physician: Becky Schmidt Performed By: Radha Zavala, NIH, RVT
== END | disposition home or self-care (01) ==
LOC: CVS 09:58
PROVIDERS: PCP Internal Medicine; Referring Provider Internal Medicine; Visit Provider Internal Medicine
DX: I65.23 Occlusion and stenosis of bilateral carotid arteries (principal)
CPT/HCPCS: 93880

== ENCOUNTER → 2023-08-02 | Outpatient (CLI) | payer OTHER, SELFPAY ==
[2023-08-02 12:00] LABS: Absolute Lymphocyte Count 1.78 X10^3/uL (0.83-4.51); Absolute Neutrophil Count 3.7 X10^3/uL (2.0-7.7); Basophil# 0.05 X10^3/uL; Basophil% 0.8 % (0-1); Differential Indicated SCAN CRITERIA MET; Eosinophil# 0.21 X10^3/uL; Eosinophils% 3.3 % (0-5); Hematocrit 38.5 % (37-47); Hemoglobin 10.9 g/dL (12.0-15.0); Lymphocyte # 1.78 X10^3/ul (0.83-4.51); Lymphocyte % 27.6 % (19-41); Mean Corp Hgb Conc 28.3 g/dL (32-36); Mean Corpuscular Hgb 21.2 pg (27.0-32.0); Monocyte# 0.68 X10^3/uL; Monocyte% 10.5 % (0-10); NRBC Flagged by Analyzer 0 % (0-5); Neutrophil # 3.72 X10^3/uL (2.7-7.7); Neutrophil % 57.5 % (47-70); POSITIVE MORPHOLOGY YES; Platelet Count 252 K/mm3 (150-450); RBC Distribution Width CV 20.5 % (11.6-14.6); Red Blood Count 5.13 M/mm3 (4.2-5.4); White Blood Count 6.5 K/mm3 (4.4-11.0)
[2023-08-02 12:18] LABS: Anisocytosis 1+
[2023-08-02 12:19] LABS: Vitamin B12 > 2000 pg/mL (211-911)
[2023-08-02 12:28] LABS: ALB/GLOB Ratio 1.2 RATIO (0.9-2.4); AST(SGOT) 20 U/L (15-37); Alanine Aminotransfer ALT/SGPT 18 U/L (13-56); Albumin, Serum 3.4 g/dL (3.2-5.0); Alkaline Phosphatase 72 U/L (45-117); Anion Gap 4 (5-15); BUN 13 mg/dL (7-18); BUN/Creat Ratio 21.1 RATIO (10-20); Calcium,Total 8.8 mg/dL (8.5-10.1); Chloride 109 mmol/L (98-107); Cholesterol 172 mg/dL (200); Creatinine, Serum 0.62 mg/dL (0.55-1.02); EST Glomerular Filtration Rate 101 mL/min (>60); Est Glom Filt Rate - Afr Amer 123 mL/min (>60); Ferritin 4 ng/mL (8-252); Globulin 2.9 g/dL (2.2-4.2); Glucose 91 mg/dL (74-106); High Density Lipoprotein 83 mg/dL; Iron 12 ug/dL (50-170); Potassium 4.7 mmol/L (3.5-5.1); Protein, Total 6.3 g/dL (6.4-8.2); Sodium Level 143 mmol/L (136-145); Thyroid Stim Hormone (TSH) 1.32 uIU/mL (0.358-3.74); Triglycerides 43 mg/dL; Very Low Density Lipoprotein 9 mg/dL (5-40)
== END | disposition home or self-care (01) ==
LOC: MTLAB 10:47
PROVIDERS: PCP Internal Medicine; Referring Provider Internal Medicine; Visit Provider Internal Medicine
DX: I10 Essential (primary) hypertension (principal); D50.9 Iron deficiency anemia, unspecified; E78.5 Hyperlipidemia, unspecified; R41.3 Other amnesia
CPT/HCPCS: 36415; 80053; 80061; 82607; 82728; 82746; 83540; 84443; 85025

== ENCOUNTER → 2023-10-31 | Outpatient (CLI) | payer OTHER, SELFPAY ==
--- NOTE | 2023-10-31 10:23 | BD_ITS ---
STUDY: DUAL ENERGY X-RAY ABSORPTIOMETRY / DXA REASON FOR EXAM: Female, 73 years old. z780 -- postmenopausal - due in october TECHNIQUE: Bone Mineral Density (BMD) measurements of lumbar spine and bilateral hips were obtained. COMPARISON: Comparison is made with prior study dated October 19, 2021. FINDINGS: Lumbar Spine (L1-L4): g/cm2 (0.874) / T-score (-1.3) / Z-score (0.8) Findings are suggestive of osteopenia with a low fracture risk. Left Femur Total: g/cm2 (0.666) / T-score (-2.3) / Z-score (-0.7) Left Femoral Neck: g/cm2 (0.553) / T-score (-2.7) / Z-score (-0.8) Right Femur Total: g/cm2 (0.690) / T-score (-2.1) / Z-score (-0.5) Right Femoral Neck: g/cm2 (0.600) / T-score (-2.2) / Z-score (-0.4) The T-Scores on the most recent prior examination were: Lumbar Spine (L1-L4): There has been worsening of bone density since the previous examination. Left Femur Total: which represents an improvement of 4.7%. Right Femur Total: which represents a worsening of 6.5%. BD/Dexa Bone Density Study IMPRESSION: The patient is considered osteoporotic as outlined below according to World Is[employer] Organization (WHO) criteria with a high fracture risk. There has been worsening of bone density since the previous examination. Reference Information: The T-score is the number of standard deviations above or below the standard which is normal for young adults at their peak bone mineral density. The World Health Organization (WHO) interprets the T-scores as follows: Above -1 Normal bone density Between -1 and -2.5 Osteopenia Equal to / or below -2.5 Osteoporosis As a practical clinical guideline, osteopenia may be graded as follows: Mild -1 through -1.5 Moderate -1.6 through -2.0 Severe -2.1 through -2.4 The Z-score is the number of standard deviations above or below age-matched controls. A Z-score of less than -1.5 would be considered abnormal. References: 1. NIH Osteoporosis and Related Bone Diseases www osteo.org 2. International Society for Clinical Densitometry www iscd.org 3. National Osteoporosis Foundation www nof.org Electronically Signed: Ace Cunha MD at 14:49 EDT ,
--- NOTE | 2023-10-31 10:24 | BI_ITS ---
MAMMOGRAPHY - BILATERAL SCREENING REASON FOR EXAM: Female, 73 years old. Routine annual screening examination. PERTINENT HISTORY: Non-contributory. TECHNIQUE: Digital bilateral breast deedee (3D mammographic acquisition) in the CC and MLO projections. 2-D mediolateral oblique (MLO) and craniocaudad (CC) views of both breasts were obtained. CAD: Full Field Digital Mammography with Computer Added Detection was performed. COMPARISON: Comparison is made with prior study October 29, 2022 and October 19, 2021. FINDINGS: Breast Composition: The breasts are heterogeneously dense, which may obscure small masses. There is an 8mm by 8.3 mm nodular density in the central portion of the left breast as seen on the cranial cavity that view. This was not seen on the mediolateral oblique view. The patient will be recalled for additional views of the left breast including compression spot views and 90 degree lateral view. No other significant abnormalities are identified. BI/SCRN MAMM (CAD)W/DEEDEE BILAT IMPRESSION: 8 mm x 8.3 mm nodular density seen on the craniocaudad view in the central aspect of the left breast. The patient will be called for additional views including 90 degree lateral and compression spot views. ASSESSMENT CATEGORY: BIRADS Category 0: Incomplete. Need additional imaging evaluation. A letter regarding these results will be sent to the patient by the facility within 30 days. Approximately 10% of breast cancers are not detected by mammography. A normal mammogram should not delay biopsy of a clinically suspicious abnormality. [id number] Electronically Signed: Ace Cunha MD at 11:56 EDT ,
== END | disposition home or self-care (01) ==
LOC: OPBD 10:21
PROVIDERS: PCP Internal Medicine; Referring Provider Internal Medicine; Visit Provider Internal Medicine
DX: Z12.31 Encounter for screening mammogram for malignant neoplasm of breast (principal); Z78.0 Asymptomatic menopausal state
CPT/HCPCS: 77063; 77067; 77080

== ENCOUNTER → 2023-11-06 | Outpatient (CLI) | payer OTHER, SELFPAY ==
--- NOTE | 2023-11-06 14:38 | BI_ITS ---
MAMMOGRAPHY - UNILATERAL DIAGNOSTIC: LEFT BREAST REASON FOR EXAM: Female, 73 years old. Abnormal screening mammogram. PERTINENT HISTORY: Non-contributory. TECHNIQUE: Compression views in the mediolateral oblique and craniocaudad projections were obtained. CAD: Full Field Digital Mammography with Computer Added Detection was performed. COMPARISON: Comparison is made with prior mammogram dated October 31, 2023. FINDINGS: Breast Composition: The breasts are heterogeneously dense, which may obscure small masses. There are no dominant masses or suspicious calcifications. No other significant abnormalities are identified. BI/DIAG MAMM W/CAD, UNILAT IMPRESSION: Negative unilateral diagnostic mammogram. Yearly followup mammogram recommended. (A) ASSESSMENT CATEGORY: BIRADS Category 1: Negative. A letter regarding these results will be sent to the patient by the facility within 30 days. Approximately 10% of breast cancers are not detected by mammography. A normal mammogram should not delay biopsy of a clinically suspicious abnormality. Electronically Signed: Ace Cunha MD at 15:22 EDT ,
== END | disposition home or self-care (01) ==
LOC: OPBI 14:35
PROVIDERS: PCP Internal Medicine; Referring Provider Internal Medicine; Visit Provider Internal Medicine
DX: R92.8 Other abnormal and inconclusive findings on diagnostic imaging of breast (principal)
CPT/HCPCS: 77065

== ENCOUNTER → 2024-07-01 | Outpatient (CLI) | payer OTHER, SELFPAY ==
--- NOTE | 2024-07-01 09:03 | CDU_ITS ---
Reason For Study: Bilateral Carotid Stenosis Rt. Velocities/BP Lt. Velocities/BP Prox CCA 87.1/20.8 cm/sec. Prox CCA 89.7/22.6 cm/sec. Mid CCA 69.9/15.8 cm/sec. Mid CCA 79.0/20.6 cm/sec. Dist CCA 67.4/18.3 cm/sec. Dist CCA 69.4/19.7 cm/sec. Prox ICA 62.2/13.8 cm/sec. Prox ICA 51.0/18.9 cm/sec. Mid ICA 68.5/19.0 cm/sec. Mid ICA 74.3/30.3 cm/sec. Dist ICA 61.7/18.2 cm/sec. Dist ICA 87.2/16.3 cm/sec. Rt. ICA/CCA = 1.0. Lt. ICA/CCA = 1.1. Prox ECA 85.5/13.0 cm/sec. Prox ECA 67.0/14.1 cm/sec. Rt. Vert. 41.5/11.2 cm/sec. Lt. Vert. 43.3/11.9 cm/sec. Right Extracranial There is homogeneous, smooth atherosclerotic plaque noted in the right common carotid artery. There is heterogeneous, irregular atherosclerotic plaque noted in the right internal carotid artery. There is intimal thickening but no significant atherosclerotic plaque noted in the right external carotid artery. Antegrade flow is noted in the right vertebral artery. Left Extracranial There is homogeneous, smooth atherosclerotic plaque noted in the left common carotid artery. There is heterogeneous, irregular atherosclerotic plaque noted in the left internal carotid artery. There is intimal thickening but no significant atherosclerotic plaque noted in the left external carotid artery. Antegrade flow is noted in the left vertebral artery. VL/Carotid Duplex Ultrasound Interpretation Summary Mild (<50%) stenosis right extracranial internal carotid. Mild (<50%) stenosis left extracranial internal carotid. Patent and antegrade vertebrals bilaterally. Ordering Physician: Becky Schmidt Referring Physician: Becky Schmidt Performed By: Neel Kaur RVT
== END | disposition home or self-care (01) ==
LOC: CVS 08:51
PROVIDERS: PCP Internal Medicine; Referring Provider Internal Medicine; Visit Provider Internal Medicine
DX: I65.23 Occlusion and stenosis of bilateral carotid arteries (principal)
CPT/HCPCS: 93880

== ENCOUNTER → 2024-09-30 | Outpatient (CLI) | payer MEDICARE, SELFPAY ==
[2024-09-30 17:36] LABS: Absolute Neutrophil Count 5.4 X10^3/uL (2.0-7.7); Hematocrit 48.1 % (37-47); Hemoglobin 15.3 g/dL (12.0-15.0); Mean Corp Hgb Conc 31.8 g/dL (32-36); Mean Corpuscular Hgb 29.4 pg (27.0-32.0); Mean Corpuscular Volume 92.5 fL (81-99); Platelet Count 292 K/mm3 (150-450); White Blood Count 8.1 K/mm3 (4.4-11.0)
[2024-09-30 17:55] LABS: ALB/GLOB Ratio 1.3 RATIO (0.9-2.4); AST(SGOT) 34 U/L (15-37); Alanine Aminotransfer ALT/SGPT 33 U/L (13-56); Albumin, Serum 3.9 g/dL (3.2-5.0); Alkaline Phosphatase 74 U/L (45-117); Anion Gap 6 (5-15); BUN 18 mg/dL (7-18); Calcium,Total 9.4 mg/dL (8.5-10.1); Chloride 108 mmol/L (98-107); Creatinine, Serum 0.69 mg/dL (0.55-1.02); EST Glomerular Filtration Rate 89 mL/min (>60); Est Glom Filt Rate - Afr Amer 107 mL/min (>60); Glucose 64 mg/dL (74-106); Potassium 3.9 mmol/L (3.5-5.1); Protein, Total 6.9 g/dL (6.4-8.2); Sodium Level 143 mmol/L (136-145); Troponin-I HS 7 pg/mL (3.0-54.0)
[2024-09-30 17:59] LABS: Lymphocyte 20 % (19-41); Monocyte 4 % (0-10); Neutrophil-Segmented 76 % (47-70); Total Cells Counted 100 (MANUAL DIFF)
[2024-09-30 18:00] LABS: Platelet Estimate ADEQUATE (ADEQ); Red Cell Morphology NORM C+C NORMAL (NORM C&C)
== END | disposition home or self-care (01) ==
LOC: LABSPEC 15:11
PROVIDERS: PCP Internal Medicine; Referring Provider Internal Medicine; Visit Provider Internal Medicine
DX: N15.9 Renal tubulo-interstitial disease, unspecified (principal); R10.9 Unspecified abdominal pain; R07.89 Other chest pain
CPT/HCPCS: 80053; 84484; 85007; 85027

== ENCOUNTER → 2024-11-06 | Outpatient (CLI) | payer MEDICARE, OTHER, SELFPAY ==
--- NOTE | 2024-11-06 10:15 | BI_ITS ---
EXAM: SCRN MAMM (CAD)W/DEEDEE BILAT 11/06/2024 CLINICAL HISTORY: F, Age 74 y/o , BILAT BRST SCREEN DEEDEE ADD-ON TECHNIQUE: Bilateral screening digital breast tomosynthesis with 2D and 3D images. Computer aided detection. COMPARISON: Prior exam(s) dated 11/06/2023, 10/31/2023. FINDINGS: TISSUE DENSITY: The breast tissue is composed of scattered area of fibroglandular density. Bilateral Breast Mammographic Findings: No significant masses, calcifications or other abnormalities are identified. BI/SCRN MAMM (CAD)W/DEEDEE BILAT IMPRESSION: Right Breast: BIRADS 1 NEGATIVE. Left Breast: BIRADS 1 NEGATIVE. OVERALL FINAL ASSESSMENT: BIRADS 1 NEGATIVE. RECOMMENDATION: Routine annual follow-up in 1 Year A letter with findings and recommendations will be mailed to the patient. Reading Location: [id number]
== END | disposition home or self-care (01) ==
LOC: OPBI 09:58
PROVIDERS: PCP Internal Medicine; Referring Provider Internal Medicine; Visit Provider Internal Medicine
DX: Z12.31 Encounter for screening mammogram for malignant neoplasm of breast (principal)
CPT/HCPCS: 77063; 77067

== ENCOUNTER → 2025-06-18 | Outpatient (CLI) | payer MEDICARE, OTHER, SELFPAY ==
--- NOTE | 2025-06-18 13:48 | CT_ITS ---
PROCEDURE: CT/Abdomen WITH IV Contrast
[2025-06-18 14:00] LABS: Hematocrit 44.9 % (37-47); Hemoglobin 14.4 g/dL (12.0-15.0); Immature Granulocytes Count 0.010 X10^3/uL (0.0-0.0); Mean Corp Hgb Conc 32.1 g/dL (32-36); Mean Corpuscular Volume 87.7 fL (81-99); Mean Platelet Vol. 11.5 fl (6.2-12.0); NRBC Flagged by Analyzer 0 % (0-5); Platelet Count 283 K/mm3 (150-450); RBC Distribution Width CV 13.8 % (11.6-14.6); RBC Distribution Width SD 44.5 fl (35.1-43.9); Red Blood Count 5.12 M/mm3 (4.2-5.4); White Blood Count 5.9 K/mm3 (4.4-11.0)
[2025-06-18 15:14] LABS: AST(SGOT) 31 U/L (<=31); Alanine Aminotransfer ALT/SGPT 26 U/L (<=34); Albumin, Serum 4.1 g/dL (3.4-4.8); Alkaline Phosphatase 68 U/L (35-104); Anion Gap 9 (5-15); BUN 14 mg/dL (4-19); BUN/Creat Ratio 18.5 RATIO (10-20); Calcium,Total 9.6 mg/dL (7.6-11.0); Carbon Dioxide 26.0 mmol/L (21.0-32.0); Chloride 106 mmol/L (98-108); Globulin 2.3 g/dL (2.2-4.2); Glucose 94 mg/dL (70-99); Potassium 3.9 mmol/L (3.3-5.1); Vitamin B12 697 pg/mL (180-914)
[2025-06-18 15:15] LABS: FOLATES,SERUM (FOLIC ACID) 7.56 ng/mL (4.60-34.80)
== END | disposition home or self-care (01) ==
LOC: CT 13:21
PROVIDERS: PCP Internal Medicine; Referring Provider Internal Medicine; Visit Provider Internal Medicine
DX: R41.0 Disorientation, unspecified (principal); R10.10 Upper abdominal pain, unspecified
CPT/HCPCS: 36415; 74160; 80053; 82607; 82746; 84443; 85025; 87086; 87088; Q9967

== ENCOUNTER → 2025-06-24 | Outpatient (CLI) | payer MEDICARE, OTHER, SELFPAY ==
[2025-06-24 14:06] LABS: Mucous, Urine 0 SEEN /hpf (<or=2+); Red Blood Cells-Urine 0 SEEN /hpf (0-5)
[2025-06-24 14:17] LABS: Color, Urine Yellow (Yellow); Glucose, Dipstick Normal (Normal); Ketone-Dipstick Negative (Negative); Leukocyte Esterase-Dipstick 25 /ul (Negative); Nitrite-Dipstick Negative (Negative); Occult Blood-Urine 10 /ul (Negative); Protein-Dipstick 30 mg/dl (Negative); Specific Gravity, Urine 1.015 (1.002-1.030)
[2025-06-24 14:18] LABS: Urine Bilirubin Dipstick 1 mg/dL (Negative)
[2025-06-24 14:23] LABS: Squamous Epithelial Cells - UA 0-5 SEEN /hpf (5-10)
[2025-06-24 14:46] LABS: Creatinine, Urine (random) 241.00 mg/dL (28.00-217.00); Microalbumin,Random Urine 91.2 mg/L (<20 mg/L)
== END | disposition home or self-care (01) ==
LOC: LABSPEC 12:33
PROVIDERS: PCP Internal Medicine; Referring Provider Internal Medicine; Visit Provider Internal Medicine
DX: R35.0 Frequency of micturition (principal); I10 Essential (primary) hypertension
CPT/HCPCS: 81001; 82043; 82570; 87077; 87086; 87088; 87186

== ENCOUNTER → 2025-08-06 | Outpatient (CLI) | payer MEDICARE, OTHER, SELFPAY ==
--- NOTE | 2025-08-06 12:55 | CDU_ITS ---
Reason For Study Reason For Study: BILATERAL CAROTID STENOSIS Rt. Velocities/BP Lt. Velocities/BP Prox CCA 53.5/10.0 cm/sec. Prox CCA 78.7/18.2 cm/sec. Mid CCA 67.0/13.1 cm/sec. Mid CCA 77.6/20.4 cm/sec. Dist CCA 52.8/9.4 cm/sec. Dist CCA 80.9/21.5 cm/sec. Prox ICA 48.1/10.3 cm/sec. Prox ICA 50.6/15.7 cm/sec. Mid ICA 59.4/16.0 cm/sec. Mid ICA 66.7/17.6 cm/sec. Dist ICA 96.3/27.0 cm/sec. Dist ICA 73.3/26.1 cm/sec. Rt. ICA/CCA = 96.3/67.0=1.4. Lt. ICA/CCA = 73.3/77.6=0.9. Prox ECA 90.7/13.4 cm/sec. Prox ECA 99.6/19.3 cm/sec. Rt. Vert. 53.4/14.9 cm/sec. Lt. Vert. 32.5/7.9 cm/sec. Right Extracranial There is homogeneous, smooth atherosclerotic plaque noted in the right common carotid artery. There is heterogeneous, smooth atherosclerotic plaque noted in the right internal carotid artery. There is heterogeneous, irregular atherosclerotic plaque noted in the right external carotid artery. Antegrade flow is noted in the right vertebral artery. Left Extracranial There is homogeneous, smooth atherosclerotic plaque noted in the left common carotid artery. There is heterogeneous, irregular atherosclerotic plaque noted in the left internal carotid artery. There is heterogeneous, smooth atherosclerotic plaque noted in the left external carotid artery. Antegrade flow is noted in the left vertebral artery. Procedure Carotid Duplex 01371. This is a Carotid Duplex examination using B-mode, color flow and specral Doppler. Exam performed in department. VL/Carotid Duplex Ultrasound Interpretation Summary Mild (<50%) stenosis right extracranial internal carotid. Mild (<50%) stenosis left extracranial internal carotid. Patent and antegrade vertebrals bilaterally. Ordering Physician: Becky Schmidt Referring Physician: Becky Schmidt Performed By: Radha Zavala, NHI, RVT
== END | disposition home or self-care (01) ==
LOC: CVS 12:54
PROVIDERS: PCP Internal Medicine; Referring Provider Internal Medicine; Visit Provider Internal Medicine
DX: I65.23 Occlusion and stenosis of bilateral carotid arteries (principal)
CPT/HCPCS: 93880